=== PATIENT | female | born 1940 | race Caucasian/White ===

== ENCOUNTER → 2016-12-12 | Outpatient (CLI) | payer MEDICARE ==
--- NOTE | 2016-12-13 07:53 | ECHOF ---
Referral Reason:R06.00 Dyspnea MEASUREMENTS -------- HEIGHT: 165.1 cm WEIGHT: 55.3 kg BP: RVIDd: 2.9 cm (< 3.3) IVSd: 0.9 cm (0.6 - 1.1) LVIDd: 3.5 cm (3.9 - 5.3) LVPWd: 0.7 cm (0.6 - 1.1) IVSs: 1.2 cm LVIDs: 2.3 cm LVPWs: 1.3 cm LA Diam: 2.9 cm (2.7 - 3.8) Ao Diam: 2.8 cm (2.0 - 3.7) AV Cusp: 1.6 cm (1.5 - 2.6) LA Diam: 2.7 cm (2.7 - 3.8) MV EXCURSION: 15.271 mm (> 18.000) MV EF SLOPE: 126 mm/s (70 - 150) EPSS: 0.2 cm MV E Waldemar: 0.75 m/s MV DecT: 211 ms MV A Waldemar: 1.20 m/s MV E/A Ratio: 0.63 AR PHT: 218 ms RAP: 5.00 mmHg RVSP: 42.67 mmHg FINDINGS -------- Sinus rhythm. This was a technically adequate study. The left ventricular size is normal. There is mild concentric left ventricular hypertrophy. Overall left ventricular systolic function is normal with, an EF between 55 - 60 %. The right ventricle is normal in size. The left atrial size is normal. The right atrial size is normal. There is mild aortic valve sclerosis. Trace to mild aortic regurgitation. The mitral valve leaflets are mildly thickened. Mild mitral annular calcification present. Mild mitral regurgitation is present. Mild tricuspid regurgitation present. There is moderate pulmonary hypertension. The right ventricular systolic pressure, as measured by Doppler, is 42.67mmHg. There is no pulmonic regurgitation present. The aortic root size is normal. There is no pericardial effusion. CONCLUSIONS -------- 1. This was a technically adequate study. 2. Mild tricuspid regurgitation present. 3. The right ventricular systolic pressure, as measured by Doppler, is 42.67mmHg. 4. There is no pulmonic regurgitation present. 5. There is no pericardial effusion. 6. There is mild concentric left ventricular hypertrophy. 7. Overall left ventricular systolic function is normal with, an EF between 55 - 60 %. 8. The left atrial size is normal. 9. There is mild aortic valve sclerosis. 10. Trace to mild aortic regurgitation. 11. The mitral valve leaflets are mildly thickened. 12. Mild mitral annular calcification present. 13. Mild mitral regurgitation is present. GOAL UMPIRE: Katrin Carlson RDCS
== END | disposition home or self-care (01) ==
LOC: RADECHMAIN 11:06
PROVIDERS: ATTEND Family Medicine
DX: I08.3 Combined rheumatic disorders of mitral, aortic and tricuspid valves (principal)
CPT/HCPCS: 93306

== ENCOUNTER → 2018-04-06 | Outpatient (CLI) | payer MEDICARE ==
[~2018-04-06] MED LIST: DOBUTamine DRIP for NUC MED 500 MG in DEXTROSE/WATER 1 250ML.BAG IV ONE
--- NOTE | 2018-04-06 12:25 | ECHOS ---
STRESS ECHOCARDIOGRAM DOBUTAMINE STRESS ECHOCARDIOGRAM DATE OF SERVICE: 04/06/2018. INDICATIONS: Chest discomfort. MEDICATIONS: BASELINE HEART RATE: 98 BASELINE BLOOD PRESSURE: 128/60 MAXIMUM HEART RATE: 130 MAXIMUM BLOOD PRESSURE: 151/57 85% MPHR: 120 100% MPHR: 141 METS: MAXIMUM STAGE REACHED: TOTAL EXERCISE TIME: CLINICAL INFORMATION: STRESS DATA: Pretesting physical examination showed a heart rate of 98, pressure is 128/60 mmHg. Baseline EKG showed sinus mechanism. Dobutamine infusion at dose of 10 mcg/kg per minute was initiated and increased to 20 mcg/kg per minute. Max heart rate was 130, which is about 92% of maximum predicted heart rate. Maximum blood pressure was 151/57 mmHg. Clinically the patient did not have any symptoms of chest pain or chest discomfort, during the testing or on recovery. The EKG did not show any significant ST or T-wave abnormalities concerning for ischemia. ECHOCARDIOGRAM IMAGES: On echocardiogram images from parasternal long axis view, parasternal short axis view, apical 4 chamber and apical 2 chamber view were obtained as the baseline images, at low dose dobutamine infusion, at peak heart rate, as well as on recovery. The echocardiogram images revealed normal wall motion without any evidence of abnormalities indicating ischemia. CONCLUSION: 1. Normal EKG in response to dobutamine. 2. Normal echocardiogram in response to dobutamine. 3. Essentially normal dobutamine stress test for the patient. MMODL / IJN: [id number] /
== END | disposition home or self-care (01) ==
LOC: RADNMMAIN 08:55
PROVIDERS: ATTEND Family Medicine
DX: R94.31 Abnormal electrocardiogram [ECG] [EKG] (principal)
CPT/HCPCS: 93351; J1250

== ENCOUNTER 2022-07-15 10:27 | Inpatient (IN) | payer MEDICARE ==
--- NOTE | 2022-07-15 10:41 | ED ---
Fall HPI - General Chief Complaint: Fall Stated Complaint: Fall Time Seen by Provider: 07/15/22 10:27 Source: patient, EMS Mode of arrival: EMS - History of Present Illness Initial Comments: 82-year-old female with a prior history of right hip fracture who states he tripped over her cat yesterday fell onto her buttock and now complains of left hip pain she tries ambulate. She normally can walk without assistance and do stairs she was unable to go upstairs last night. At rest she states she has minimal discomfort but she tries to weight-bear or move or press on the left hip she has had pain. No head neck or back pain other complaints or modifying factors. Is brought in by EMS MD Complaint: fall - Related Data Home Medications Medication Instructions Recorded Confirmed Acetaminophen [Tylenol Arthritis] 650 mg PO Q8H PRN 07/15/22 07/15/22 Ascorbic Acid [Vitamin C] 500 mg PO DAILY 07/15/22 07/15/22 Calcium Carbonate [Calcium] 600 mg PO DAILY 07/15/22 07/15/22 Cholecalciferol [Vitamin D3 (25 25 mcg PO DAILY 07/15/22 07/15/22 Mcg = 1000 Iu)] Famotidine 40 mg PO HS PRN 07/15/22 07/15/22 SUMAtriptan succinate [Imitrex] 50 mg PO BID PRN 07/15/22 07/15/22 Vitamin B Complex 1 cap PO DAILY 07/15/22 07/15/22 Allergies Allergy/AdvReac Type Severity Reaction Status Date / Time clarithromycin Allergy Unknown Verified 07/15/22 11:15 ciprofloxacin [From Cipro] AdvReac Unknown Verified 07/15/22 11:15 Review of Systems ROS Statement: Those systems with pertinent positive or pertinent negative responses have been documented in the HPI. ROS Other: All systems not noted in ROS Statement are negative. Past Medical History Past Surgical History: Orthopedic Surgery Additional Past Surgical History / Comment(s): Right hip General Exam - General Exam Comments Initial Comments: This is a well-developed well-nourished awake alert oriented 2 female with a Breonna Coma Scale of 15 Limitations: no limitations General appearance: alert, in no apparent distress Head exam: Present: atraumatic, normocephalic, normal inspection Eye exam: Present: normal appearance, PERRL, EOMI. Absent: scleral icterus, conjunctival injection, periorbital swelling ENT exam: Present: normal exam, mucous membranes moist Neck exam: Present: normal inspection, full ROM, other. Absent: tenderness, meningismus, lymphadenopathy Respiratory exam: Present: normal lung sounds bilaterally. Absent: respiratory distress, wheezes, rales, rhonchi, stridor Cardiovascular Exam: Present: regular rate, normal rhythm, normal heart sounds. Absent: systolic murmur, diastolic murmur, rubs, gallop, clicks GI/Abdominal exam: Present: soft, normal bowel sounds. Absent: distended, tenderness, guarding, rebound, rigid Rectal exam: Present: deferred (No stridor JVD or bruits) Extremities exam: Present: normal inspection, tenderness (Is palpation of the right hip and pelvis no step-off no crepitation no shortening or rotation), normal capillary refill. Absent: full ROM, pedal edema, joint swelling, calf tenderness Back exam: Present: normal inspection Neurological exam: Present: alert, oriented X3, CN II-XII intact Psychiatric exam: Present: normal affect, normal mood Skin exam: Present: warm, dry, intact, normal color. Absent: rash Course Vital Signs 07/15/22 10:30 Temperature 98 F Pulse Rate 107 H Respiratory 18 Rate Blood Pressure 141/60 O2 Sat by Pulse 99 Oximetry Medical Decision Making - Medical Decision Making I did discuss the findings with the patient and family also with Dr. Patrice Torres he been alerted to the patient's presence and did come the emergency department to see the patient. Will be admitted with medical management by Dr. Edward mosqueda with the patient just started seen. - Lab Data Result diagrams: 07/15/22 11:30 07/15/22 11:30 Lab Results 07/15/22 07/15/22 07/15/22 Range/Units 11:30 11:30 11:30 WBC 5.7 (3.8-10.6) k/uL RBC 3.90 (3.80-5.40) m/uL Hgb 11.9 (11.4-16.0) gm/dL Hct 34.9 (34.0-46.0) % MCV 89.4 (80.0-100.0) fL MCH 30.6 (25.0-35.0) pg MCHC 34.2 (31.0-37.0) g/dL RDW 14.4 (11.5-15.5) % Plt Count 207 (150-450) k/uL MPV 7.2 Neutrophils % 78 % Lymphocytes % 13 % Monocytes % 5 % Eosinophils % 1 % Basophils % 0 % Neutrophils # 4.5 (1.3-7.7) k/uL Lymphocytes # 0.8 L (1.0-4.8) k/uL Monocytes # 0.3 (0-1.0) k/uL Eosinophils # 0.1 (0-0.7) k/uL Basophils # 0.0 (0-0.2) k/uL PT 11.1 (9.0-12.0) sec INR 1.0 (<1.2) Sodium 137 (137-145) mmol/L Potassium 3.9 (3.5-5.1) mmol/L Chloride 105 (98-107) mmol/L Carbon Dioxide 20 L (22-30) mmol/L Anion Gap 12 mmol/L BUN 22 H (7-17) mg/dL Creatinine 0.66 (0.52-1.04) mg/dL Est GFR (CKD-EPI)AfAm >90 (>60 ml/min/1.73 sqM) Est GFR (CKD-EPI)NonAf 81 (>60 ml/min/1.73 sqM) Glucose 102 H (74-99) mg/dL Calcium 9.5 (8.4-10.2) mg/dL Total Bilirubin 1.2 (0.2-1.3) mg/dL AST 38 H (14-36) U/L ALT 31 (4-34) U/L Alkaline Phosphatase 69 (38-126) U/L Total Protein 7.1 (6.3-8.2) g/dL Albumin 4.6 (3.5-5.0) g/dL - Radiology Data Radiology results: image reviewed (I did read the x-ray evidence of a pubic ramus fracture and pubic body fracture the hip appears be intact.) Disposition Clinical Impression: Fall, Pelvic fracture, Closed fracture of left inferior pubic ramus Disposition: ADMITTED IP TO THIS [facility] Condition: Fair Referrals: Juan R Crandall MD [Primary Care Provider] - 1-2 days Decision Date: 07/15/22 Decision Time: 12:00
--- NOTE | 2022-07-15 11:02 | XR ---
EXAMINATION TYPE: AP view pelvis and 2 views left hip DATE OF EXAM: 07/15/2022 Comparison: Postoperative right hip radiograph 11/14/2013 Clinical History: 82-year-old female Left hip pain after fall Findings: Degenerative changes lower lumbar spine. Partially visualized right hip arthroplasty. Pubic symphysis appears intact. However, there appears to be irregularity and some deformity to the left pubic body. Some lucency is present along the left inferior pubic ramus. Mild degenerative change left hip. No d isplaced fracture of the proximal left femur. Impression: Comminuted fracture left pubic body. Suspect additional nondisplaced fracture left inferior pubic kalee us. Mild left hip OA.
[2022-07-15 11:37] LABS: Basophils % (A) 0 %; Eosinophils # (A) 0.1 k/uL (0-0.7); Eosinophils % (A) 1 %; HCT 34.9 % (34.0-46.0); HGB 11.9 gm/dL (11.4-16.0); Lymphocytes # (A) 0.8 k/uL (1.0-4.8); Lymphocytes % (A) 13 %; MCH 30.6 pg (25.0-35.0); MCHC 34.2 g/dL (31.0-37.0); MCV 89.4 fL (80.0-100.0); Mean Platelet Volume 7.2; Monocytes # (A) 0.3 k/uL (0-1.0); Monocytes % (A) 5 %; Neutrophils # (A) 4.5 k/uL (1.3-7.7); Neutrophils % (A) 78 %; Platelet Count 207 k/uL (150-450); RDW 14.4 % (11.5-15.5); WBC 5.7 k/uL (3.8-10.6)
[2022-07-15 11:42] LABS: Prothrombin Time 11.1 sec (9.0-12.0)
[2022-07-15 11:50] LABS: ALT 31 U/L (4-34); AST 38 U/L (14-36); African American GFR (CKD) >90 (>60 ml/min/1.73 sqM); Albumin 4.6 g/dL (3.5-5.0); Alkaline Phosphatase 69 U/L (38-126); Anion Gap 12 mmol/L; Blood Urea Nitrogen 22 mg/dL (7-17); Calcium 9.5 mg/dL (8.4-10.2); Carbon Dioxide 20 mmol/L (22-30); Chloride 105 mmol/L (98-107); Glucose 102 mg/dL (74-99); Non-African American GFR(CKD) 81 (>60 ml/min/1.73 sqM); Potassium 3.9 mmol/L (3.5-5.1); Sodium 137 mmol/L (137-145); Total Bilirubin 1.2 mg/dL (0.2-1.3); Total Protein 7.1 g/dL (6.3-8.2)
[2022-07-15] MEDS ORDERED: ACETAMINOPHEN TAB 325 MG TAB PO PRN ×2 (12:13→17:00)
[2022-07-15] MEDS ORDERED: HYDROmorphone 1 MG/ML 1 ML SYRINGE IVP PRN (12:13)
[2022-07-15] MEDS ORDERED: NALOXONE 0.4 MG/ML 1 ML VIAL IV PRN (12:13)
[2022-07-15] MEDS ORDERED: PANTOPRAZOLE 40 MG/10 ML VIAL IVP STA (12:17)
--- NOTE | 2022-07-15 12:20 | P.HPOR ---
History of Present Illness H&P Date: 07/15/22 The patient is a very pleasant previously healthy 82-year-old female who presents to the emergency department with left groin, hip and low back pain. Yesterday she tripped over That she was watching resulting in a ground-level fall. She had progressively worsening pain and an inability to ambulate. She contacted our office this morning scheduled appointment, but we directed her to come to the emergency department due to her inability to ambulate. At the time of my evaluation the emergency department she is having minor discomfort in her left buttock and groin. She denies hitting her head or losing consciousness. She denies any previous left hip pain. She does have a prior right total hip replacement that has been doing relatively well. Past Medical History Past Surgical History: Orthopedic Surgery Additional Past Surgical History / Comment(s): Right hip Medications and Allergies Home Medications Medication Instructions Recorded Confirmed Type Acetaminophen [Tylenol Arthritis] 650 mg PO Q8H PRN 07/15/22 07/15/22 History Ascorbic Acid [Vitamin C] 500 mg PO DAILY 07/15/22 07/15/22 History Calcium Carbonate [Calcium] 600 mg PO DAILY 07/15/22 07/15/22 History Cholecalciferol [Vitamin D3 (25 25 mcg PO DAILY 07/15/22 07/15/22 History Mcg = 1000 Iu)] Famotidine 40 mg PO HS PRN 07/15/22 07/15/22 History SUMAtriptan succinate [Imitrex] 50 mg PO BID PRN 07/15/22 07/15/22 History Vitamin B Complex 1 cap PO DAILY 07/15/22 07/15/22 History Allergies Allergy/AdvReac Type Severity Reaction Status Date / Time clarithromycin Allergy Unknown Verified 07/15/22 11:15 ciprofloxacin [From Cipro] AdvReac Unknown Verified 07/15/22 11:15 Physical Examination The patient is resting comfortably on a hospital gurney in the ER. She is alert and easily able to answer questions. Her head is normocephalic and atraumatic. Her cervical spine is nontender. She demonstrates nonlabored breathing with symmetric chest expansion. She has palpable pulses. Her abdomen is nonobese. She has no tenderness throughout her upper extremities or her right lower extremity. There is a healed incision over the right hip. A focused examination of the left lower extremity was conducted. There is no pain with logroll of the leg. She has minimal pain with passive range of motion of the left hip. There is some point tenderness over the anterior pelvis. Her left knee and ankle are nontender. Her thigh and calf are soft. Motor and sensory function are intact in the left foot. Results X-rays of the pelvis and left hip show displaced parasymphyseal superior and inferior pubic rami fractures on the left. There are no fractures in the left proximal femur. There is a prior right total hip replacement that appears well fixed with no sign of loosening or fracture. There are degenerative changes visualized in the lower lumbar spine. There is mild left hip arthritis. - Labs Labs: Abnormal Lab Results - Last 24 Hours (Table) 07/15/22 07/15/22 Range/Units 11:30 11:30 Lymphocytes # 0.8 L (1.0-4.8) k/uL Carbon Dioxide 20 L (22-30) mmol/L BUN 22 H (7-17) mg/dL Glucose 102 H (74-99) mg/dL AST 38 H (14-36) U/L H & H 07/15/22 Range/Units 11:30 Hgb 11.9 (11.4-16.0) gm/dL Hct 34.9 (34.0-46.0) % Coagulation 07/15/22 Range/Units 11:30 INR 1.0 (<1.2) Result Diagrams: 07/15/22 11:30 07/15/22 11:30 Assessment and Plan Assessment: Left parasymphyseal pubic rami fractures and likely left sacral buckle fracture Prior right total hip replacement Left hip arthritis Osteoporosis Degenerative lumbar spine Plan: The patient has a left parasymphyseal pubic rami fracture and likely sacral buckle fracture. We discussed treatment of fragility pelvic fractures is nonsurgical with protected weightbearing and a walker. The patient is going to be admitted under my care. Internal medicine has been consulted for medical management. Physical therapy for gait training. She can toe touch weight-bear on the left and should mobilize up out of bed with a walker. Care management for discharge planning. I will also check a 25 hydroxy vitamin D level.
[2022-07-15] MEDS: SODIUM CHLORIDE 0.9% 1,000 ML IV SCH (13:11)
[2022-07-15] MEDS ORDERED: FAMOTIDINE 20 MG TAB PO PRN (17:00)
[2022-07-15] MEDS ORDERED: SUMAtriptan succinate 50 MG TAB PO PRN (17:00)
--- NOTE | 2022-07-15 17:31 | P.CONS ---
History of Present Illness - Reason for Consult Consult date: 07/15/22 - History of Present Illness Pamela Yepez, is an 82 year old female who presented to [facility] ER after sustaining a fall and complaining of pain in the left hip area She was evaluated in the emergency room vital examination on presentation revealed a temperature of 98 pulse 107 respiration 18 blood pressure 141/60 pulse ox 99% on room air Laboratory data revealed a white blood count of 5.7 hemoglobin 11.9 platelet count 207 sodium 137 potassium 3.9 chloride 105 CO2 20 BUN 22 creatinine 0.66 Testing in the emergency room revealed pelvic x-ray revealed evidence of comminuted fracture in the left pubic body Patient was admitted to medical floor under orthopedic surgery service for further evaluation and treatment, medical consultation was requested Past medical history is significant for history of osteoarthritis, history of right total hip arthroplasty patient denies any history of coronary artery disease, hypertension, hyperlipidemia, asthma or kidney disease Past Medical History Past Surgical History: Orthopedic Surgery Additional Past Surgical History / Comment(s): Right hip Medications and Allergies Home Medications Medication Instructions Recorded Confirmed Type Acetaminophen [Tylenol Arthritis] 650 mg PO Q8H PRN 07/15/22 07/15/22 History Ascorbic Acid [Vitamin C] 500 mg PO DAILY 07/15/22 07/15/22 History Calcium Carbonate [Calcium] 600 mg PO DAILY 07/15/22 07/15/22 History Cholecalciferol [Vitamin D3 (25 25 mcg PO DAILY 07/15/22 07/15/22 History Mcg = 1000 Iu)] Famotidine 40 mg PO HS PRN 07/15/22 07/15/22 History SUMAtriptan succinate [Imitrex] 50 mg PO BID PRN 07/15/22 07/15/22 History Vitamin B Complex 1 cap PO DAILY 07/15/22 07/15/22 History Allergies Allergy/AdvReac Type Severity Reaction Status Date / Time clarithromycin Allergy Unknown Verified 07/15/22 11:15 ciprofloxacin [From Cipro] AdvReac Unknown Verified 07/15/22 11:15 Physical Exam Vitals: Vital Signs Temp Pulse Resp BP Pulse Ox 07/15/22 12:34 80 18 116/78 98 07/15/22 10:30 98 F 107 H 18 141/60 99 Intake and Output 07/15/22 07/15/22 07/15/22 06:59 14:59 22:59 Other: Weight 46.72 kg In general patient is alert and oriented x 3 in no distress HEENT head normocephalic and atraumatic Neck is supple no JVD no goiter no lymphadenopathy no carotid bruit Chest examination is clear to auscultation no crackles no wheezing Cardiac exam reveals regular heart sounds S1 and S2 no gallops no murmurs Abdomen is soft nontender no organomegaly with normal bowel sounds Extremity exam reveals no edema no cyanosis or clubbing Neurological examination reveals no gross focal deficits Results CBC & Chem 7: 07/15/22 11:30 07/15/22 11:30 Labs: Abnormal Lab Results - Last 24 Hours (Table) 07/15/22 07/15/22 Range/Units 11:30 11:30 Lymphocytes # 0.8 L (1.0-4.8) k/uL Carbon Dioxide 20 L (22-30) mmol/L BUN 22 H (7-17) mg/dL Glucose 102 H (74-99) mg/dL AST 38 H (14-36) U/L Assessment and Plan Plan: Fall with left pubic rami fracture Underlying history was osteoarthritis with history of right total hip arthroplasty Underlying history of degenerative disc disease Underlying history of migraine headache At this time patient was seen and examined Home medications reviewed and reordered For DVT prophylaxis Lovenox For GI prophylaxis continue famotidine Will follow closely during this admission
[2022-07-16] MEDS: SODIUM CHLORIDE 0.9% 1,000 ML IV SCH (02:46)
[2022-07-16] MEDS ORDERED: NON FORMULARY DRUG (Vitamin B Complex [Vitamin B Complex] 1 EACH Capsule) PO SCH (09:00)
[2022-07-16] MEDS: ENOXAPARIN 40 MG/0.4 ML SYRINGE SQ SCH (09:04)
[2022-07-16] MEDS: ASCORBIC ACID 500 MG TAB PO SCH (09:04)
[2022-07-16] MEDS: CHOLECALCIFEROL 25 MCG (1000 IU) TABLET PO SCH (09:04)
[2022-07-16] MEDS: CALCIUM CARBONATE 500 MG CHEWABLE PO SCH (09:05)
[2022-07-16 09:24] LABS: Albumin 3.9 g/dL (3.8-4.9); Albumin/Globulin Ratio 2.17 (1.60-3.17); Anion Gap 9.2 mmol/L (10.00-18.00); BUN/Creat Ratio 19.83 Ratio (12.00-20.00); Blood Urea Nitrogen 11.9 mg/dL (9.0-27.0); Calcium 8.7 mg/dL (8.7-10.3); Carbon Dioxide 21.8 mmol/L (20.0-27.5); Globulin 1.8 g/dL (1.6-3.3); Non-African American GFR(CKD) 83.7 (60.0-200.0); Potassium 3.9 mmol/L (3.5-5.5); Total Bilirubin 0.5 mg/dL (0.30-1.20); Total Protein 5.7 g/dL (6.2-8.2)
[2022-07-16 09:26] LABS: Basophils # (A) 0.02 X 10*3/uL (0.00-0.10); Basophils % (A) 0.4 %; Eosinophils # (A) 0.18 X 10*3/uL (0.04-0.35); Eosinophils % (A) 3.5 %; HCT 31.8 % (37.2-46.3); HGB 10.3 g/dL (12.0-15.0); Immature Grans, Automated 0.4 %; Lymphocytes % (A) 17.6 %; MCH 29.2 pg (27.0-32.0); MCHC 32.4 g/dL (32.0-37.0); MCV 90.1 fL (80.0-97.0); Mean Platelet Volume 9.5 fL (9.5-12.2); Monocytes # (A) 0.56 X 10*3/uL (0.20-1.00); NRBC Per 100 WBC 0 /100 WBCS (0.0-0.0); Neutrophils # (A) 3.42 X 10*3/uL (1.80-7.70); Neutrophils % (A) 67.1 %; Platelet Count 197 X 10*3/uL (140-440); RBC 3.53 X 10*6/uL (4.10-5.20); RDW 14.4 % (11.5-14.5)
[2022-07-16 11:14] VITALS: BMI 17.1
[2022-07-16] MEDS: HYDROcodone/APAP 5-325MG 1 EACH TAB PO PRN ×2 (13:11→18:56)
--- NOTE | 2022-07-16 14:32 | P.PN ---
Subjective Progress Note Date: 07/16/22 Mrs. Yepez is sitting up at bedside this morning. She is doing well at rest, but has some pain when she's up. She also has some discomfort from her IV. Objective - Vital Signs Vital signs: Vital Signs Temp 99.2 F 07/16/22 08:00 Pulse 86 07/16/22 08:00 Resp 18 07/16/22 08:00 BP 104/57 07/16/22 08:00 Pulse Ox 95 07/16/22 08:00 FiO2 Intake & Output 07/15/22 07/16/22 07/16/22 18:59 06:59 18:59 Intake Total 300 Output Total 800 Balance -800 300 Weight 46.72 kg 46.72 kg Intake: Oral 300 Output: Urine 800 Other: Voiding Method Indwelling Catheter Indwelling Catheter Indwelling Catheter # Voids 0 - Exam Sitting comfortably in a chair No apparent distress Alert and able to answer question Left LE: No pain with PROM of the hip. Motor/Sensory function intact distally in the foot - Labs CBC & Chem 7: 07/16/22 05:52 07/16/22 05:52 Labs: Abnormal Lab Results - Last 24 Hours (Table) 07/16/22 07/16/22 Range/Units 05:52 05:52 RBC 3.53 L (4.10-5.20) X 10*6/uL Hgb 10.3 L (12.0-15.0) g/dL Hct 31.8 L (37.2-46.3) % Anion Gap 9.20 L (10.00-18.00) mmol/L Total Protein 5.7 L (6.2-8.2) g/dL Assessment and Plan Assessment: Left parasymphyseal superior and inferior pubic rami fractures and likley left sided sacral insufficiency fracture Osteoporosis Prior right total hip replacement Plan: 1. TTWB Left LE 2. Mobilize out of bed to chair 3. PT for mobilization and gait training 4. DVT prophylaxis with Lovenox 40 mg daily 5. Appreciate IM assistance with perioperative medical management 6. DISPO: Planning in progress, likely [place] following discharge
--- NOTE | 2022-07-16 18:04 | P.PN ---
Subjective Progress Note Date: 07/16/22 Pamela Yepez, is an 82 year old female who presented to [facility] ER after sustaining a fall and complaining of pain in the left hip area She was evaluated in the emergency room vital examination on presentation revealed a temperature of 98 pulse 107 respiration 18 blood pressure 141/60 pulse ox 99% on room air Laboratory data revealed a white blood count of 5.7 hemoglobin 11.9 platelet count 207 sodium 137 potassium 3.9 chloride 105 CO2 20 BUN 22 creatinine 0.66 Testing in the emergency room revealed pelvic x-ray revealed evidence of comminuted fracture in the left pubic body Patient was admitted to medical floor under orthopedic surgery service for further evaluation and treatment, medical consultation was requested Past medical history is significant for history of osteoarthritis, history of right total hip arthroplasty patient denies any history of coronary artery disea se, hypertension, hyperlipidemia, asthma or kidney disease On 07/16/2022 patient was seen and examined on the medical floor she is alert and oriented 3 in no apparent distress she is sitting up in a chair she is still complaining of low back pain and left hip pain otherwise she denies any complaints, there is no fever or chills no headache or dizziness no chest pain no shortness of breath no cough no nausea or vomiting no abdominal pain no diarrhea and no urinary symptoms Objective - Vital Signs Vital signs: Vital Signs Temp 99.2 F 07/16/22 08:00 Pulse 86 07/16/22 08:00 Resp 18 07/16/22 08:00 BP 104/57 07/16/22 08:00 Pulse Ox 95 07/16/22 08:00 FiO2 Intake & Output 07/15/22 07/16/22 07/16/22 18:59 06:59 18:59 Output Total 800 Balance -800 Weight 46.72 kg Output: Urine 800 Other: Voiding Method Indwelling Catheter Indwelling Catheter # Voids 0 - Exam In general patient is alert and oriented x 3 in no distress HEENT head normocephalic and atraumatic Neck is supple no JVD no goiter no lymphadenopathy no carotid bruit Chest examination is clear to auscultation no crackles no wheezing Cardiac exam reveals regular heart sounds S1 and S2 no gallops no murmurs Abdomen is soft nontender no organomegaly with normal bowel sounds Extremity exam reveals no edema no cyanosis or clubbing Neurological examination reveals no gross focal deficits - Labs CBC & Chem 7: 11/23/22 05:52 07/16/22 05:52 Labs: Abnormal Lab Results - Last 24 Hours (Table) 07/15/22 07/15/22 Range/Units 11:30 11:30 Lymphocytes # 0.8 L (1.0-4.8) k/uL Carbon Dioxide 20 L (22-30) mmol/L BUN 22 H (7-17) mg/dL Glucose 102 H (74-99) mg/dL AST 38 H (14-36) U/L Assessment and Plan Plan: Fall with left pubic rami fracture Underlying history was osteoarthritis with history of right total hip arthroplasty Underlying history of degenerative disc disease Underlying history of migraine headache At this time patient was seen and examined Home medications reviewed and reordered For DVT prophylaxis Lovenox For GI prophylaxis continue famotidine Will follow closely during this admission
[2022-07-17] MEDS: HYDROcodone/APAP 5-325MG 1 EACH TAB PO PRN ×3 (06:49→21:00)
--- NOTE | 2022-07-17 07:49 | P.PN ---
Subjective Progress Note Date: 07/17/22 Overall the patient is doing well. She does have some discomfort in her left calf, ankle and heel. She denies chest pain or shortness of breath. Objective - Vital Signs Vital signs: Vital Signs Temp 98.7 F 07/17/22 03:11 Pulse 87 07/17/22 03:11 Resp 17 07/17/22 03:11 BP 109/67 07/17/22 03:11 Pulse Ox 95 07/17/22 03:11 FiO2 Intake & Output 07/16/22 07/17/22 07/17/22 18:59 06:59 18:59 Intake Total 655 200 Output Total 1000 1575 Balance -345 -1375 Weight 46.72 kg Intake: Oral 655 200 Output: Urine 1000 1575 Uretheral ([place]) 1000 Other: Voiding Method Indwelling Catheter - Exam The patient is resting comfortably in bed. She is alert and oriented. She is easily able to answer questions. On examination of the patient's left leg there is mild swelling diffusely throughout the calf and ankle. She has moderate calf tenderness. There are no areas of pressure sore or open wounds over the heel but there is blanching erythema. - Labs CBC & Chem 7: 07/16/22 05:52 07/16/22 05:52 Labs: Abnormal Lab Results - Last 24 Hours (Table) 07/16/22 07/16/22 Range/Units 05:52 05:52 RBC 3.53 L (4.10-5.20) X 10*6/uL Hgb 10.3 L (12.0-15.0) g/dL Hct 31.8 L (37.2-46.3) % Anion Gap 9.20 L (10.00-18.00) mmol/L Total Protein 5.7 L (6.2-8.2) g/dL Assessment and Plan Plan: 1. Continue toe-touch weightbearing on the left lower extremity 2. Mobilize out of bed to chair 3. Offload heels while in bed on a pillow to prevent pressure sore 4. Continue Lovenox 40 mg daily for DVT prophylaxis. Due to her Pelvic fracture and calf tenderness I will obtain bilateral lower extremity duplex ultrasounds to rule out a DVT 5. Appreciate internal medicine assistance with preoperative medical management 6. Discharge planning in process
[2022-07-17] MEDS: CHOLECALCIFEROL 25 MCG (1000 IU) TABLET PO SCH (08:52)
[2022-07-17] MEDS: CALCIUM CARBONATE 500 MG CHEWABLE PO SCH (08:52)
[2022-07-17] MEDS: ENOXAPARIN 40 MG/0.4 ML SYRINGE SQ SCH (08:52)
[2022-07-17] MEDS: ASCORBIC ACID 500 MG TAB PO SCH (08:52)
--- NOTE | 2022-07-17 13:47 | US ---
EXAMINATION TYPE: US venous doppler duplex LE DATE OF EXAM: 07/17/2022 7:50 AM COMPARISON: NONE CLINICAL HISTORY: rule out DVT. Leg swelling per patient. On blood thinners here at hospital. SIDE PERFORMED: Bilateral TECHNIQUE: The lower extremity deep venous system is examined utilizing real time linear array sonog joanie with graded compression, doppler sonography and color-flow sonography. VESSELS IMAGED: Common Femoral Vein Deep Femoral Vein Greater Saphenous Vein * Femoral Vein Popliteal Vein Small Saphenous Vein * Proximal Calf Veins (* superficial vessels) Right Leg: Negative for DVT Left Leg: Negative for DVT : Grayscale, color doppler, spectral doppler imaging performed of the deep veins of the lower extrem ities. There is normal flow, compressibility, vascular waveforms. IMPRESSION: No evidence for deep vein to most of the bilateral lower extremities.
--- NOTE | 2022-07-17 14:15 | P.PN ---
Subjective Progress Note Date: 07/17/22 Pamela Yepez, is an 82 year old female who presented to [facility] ER after sustaining a fall and complaining of pain in the left hip area She was evaluated in the emergency room vital examination on presentation revealed a temperature of 98 pulse 107 respiration 18 blood pressure 141/60 pulse ox 99% on room air Laboratory data revealed a white blood count of 5.7 hemoglobin 11.9 platelet count 207 sodium 137 potassium 3.9 chloride 105 CO2 20 BUN 22 creatinine 0.66 Testing in the emergency room revealed pelvic x-ray revealed evidence of comminuted fracture in the left pubic body Patient was admitted to medical floor under orthopedic surgery service for further evaluation and treatment, medical consultation was requested Past medical history is significant for history of osteoarthritis, history of right total hip arthroplasty patient denies any history of coronary artery disea se, hypertension, hyperlipidemia, asthma or kidney disease On 07/16/2022 patient was seen and examined on the medical floor she is alert and oriented 3 in no apparent distress she is sitting up in a chair she is still complaining of low back pain and left hip pain otherwise she denies any complaints, there is no fever or chills no headache or dizziness no chest pain no shortness of breath no cough no nausea or vomiting no abdominal pain no diarrhea and no urinary symptoms On 07/17/2022 patient was seen and examined she is alert and oriented 3 she is complaining of lower extremity pain, lower extremity venous Doppler was requested to rule out DVT otherwise she denies any complaints there is no fever or chills no headache or dizziness no chest pain no shortness of breath no cough no nausea or vomiting no abdominal pain no diarrhea and no urinary symptoms. At this time will continue with subcu Lovenox 40 mg daily, will continue to follow Objective - Vital Signs Vital signs: Vital Signs Temp 99.2 F 07/17/22 08:00 Pulse 97 07/17/22 08:00 Resp 16 07/17/22 08:00 BP 110/66 07/17/22 08:00 Pulse Ox 96 07/17/22 08:00 FiO2 Intake & Output 07/16/22 07/17/22 07/17/22 18:59 06:59 18:59 Intake Total 655 200 Output Total 1000 1575 Balance -345 -1375 Weight 46.72 kg Intake: Oral 655 200 Output: Urine 1000 1575 Uretheral (Prince) 1000 Other: Voiding Method Indwelling Catheter - Exam In general patient is alert and oriented x 3 in no distress HEENT head normocephalic and atraumatic Neck is supple no JVD no goiter no lymphadenopathy no carotid bruit Chest examination is clear to auscultation no crackles no wheezing Cardiac exam reveals regular heart sounds S1 and S2 no gallops no murmurs Abdomen is soft nontender no organomegaly with normal bowel sounds Extremity exam reveals no edema no cyanosis or clubbing Neurological examination reveals no gross focal deficits - Labs CBC & Chem 7: 07/16/22 05:52 07/16/22 05:52 Labs: Abnormal Lab Results - Last 24 Hours (Table) 07/16/22 07/16/22 Range/Units 05:52 05:52 RBC 3.53 L (4.10-5.20) X 10*6/uL Hgb 10.3 L (12.0-15.0) g/dL Hct 31.8 L (37.2-46.3) % Anion Gap 9.20 L (10.00-18.00) mmol/L Total Protein 5.7 L (6.2-8.2) g/dL Assessment and Plan Plan: Fall with left pubic rami fracture Underlying history was osteoarthritis with history of right total hip arthroplasty Underlying history of degenerative disc disease Underlying history of migraine headache At this time patient was seen and examined Home medications reviewed and reordered For DVT prophylaxis Lovenox For GI prophylaxis continue famotidine Will follow closely during this admission
[2022-07-18] MEDS: HYDROcodone/APAP 5-325MG 1 EACH TAB PO PRN ×3 (06:21→21:11)
[2022-07-18 08:43] LABS: Basophils # (A) 0.05 X 10*3/uL (0.00-0.10); Basophils % (A) 0.8 %; Eosinophils % (A) 4.9 %; HCT 31.1 % (37.2-46.3); HGB 10.1 g/dL (12.0-15.0); Immature Grans, Automated 0.3 %; Lymphocytes # (A) 1.12 X 10*3/uL (0.90-5.00); Lymphocytes % (A) 18.2 %; MCH 29.7 pg (27.0-32.0); MCHC 32.5 g/dL (32.0-37.0); MCV 91.5 fL (80.0-97.0); Mean Platelet Volume 9.2 fL (9.5-12.2); NRBC Per 100 WBC 0 /100 WBCS (0.0-0.0); Neutrophils # (A) 3.86 X 10*3/uL (1.80-7.70); Neutrophils % (A) 62.8 %; Platelet Count 211 X 10*3/uL (140-440); RDW 14.2 % (11.5-14.5); WBC 6.15 X 10*3/uL (4.50-10.00)
[2022-07-18 08:56] LABS: African American GFR (CKD) 92.2 (60.0-200.0); Albumin 3.6 g/dL (3.8-4.9); Albumin/Globulin Ratio 1.71 (1.60-3.17); Anion Gap 9.7 mmol/L (10.00-18.00); BUN/Creat Ratio 15.86 Ratio (12.00-20.00); Blood Urea Nitrogen 11.1 mg/dL (9.0-27.0); Calcium 8.9 mg/dL (8.7-10.3); Carbon Dioxide 26.3 mmol/L (20.0-27.5); Globulin 2.1 g/dL (1.6-3.3); Non-African American GFR(CKD) 79.6 (60.0-200.0); Potassium 4.5 mmol/L (3.5-5.5); Total Bilirubin 0.4 mg/dL (0.30-1.20); Total Protein 5.7 g/dL (6.2-8.2)
[2022-07-18] MEDS: CHOLECALCIFEROL 25 MCG (1000 IU) TABLET PO SCH (09:37)
[2022-07-18] MEDS: ASCORBIC ACID 500 MG TAB PO SCH (09:37)
[2022-07-18] MEDS: CALCIUM CARBONATE 500 MG CHEWABLE PO SCH (09:37)
[2022-07-18] MEDS: ENOXAPARIN 40 MG/0.4 ML SYRINGE SQ SCH (09:38)
--- NOTE | 2022-07-18 10:10 | P.PN ---
Subjective Progress Note Date: 07/18/22 Patient is doing well other than some minor discomfort in her pelvis. She is presently up in a chair. Objective - Vital Signs Vital signs: Vital Signs Temp 97.9 F 07/18/22 08:00 Pulse 93 07/18/22 08:00 Resp 14 07/18/22 08:00 BP 110/58 07/18/22 08:00 Pulse Ox 93 L 07/18/22 08:00 FiO2 Intake & Output 07/17/22 07/18/22 07/18/22 18:59 06:59 18:59 Intake Total 240 Output Total 500 1350 375 Balance -500 -1350 -135 Intake: Oral 240 Output: Urine 500 1350 375 Other: Voiding Method Indwelling Catheter Indwelling Catheter - Exam At time of evaluation the patient is sitting up comfortably in a chair. She is alert and able to answer questions. She demonstrates nonlabored breathing. There is no pain with passive range of motion of the left hip. There is no pain with heel strike. Her calves are both soft and nontender. There is diffuse ecchymosis throughout both of her legs but no signs of pressure sore. - Labs CBC & Chem 7: 07/18/22 05:44 07/18/22 05:44 Labs: Abnormal Lab Results - Last 24 Hours (Table) 07/18/22 07/18/22 Range/Units 05:44 05:44 RBC 3.40 L (4.10-5.20) X 10*6/uL Hgb 10.1 L (12.0-15.0) g/dL Hct 31.1 L (37.2-46.3) % MPV 9.2 L (9.5-12.2) fL Anion Gap 9.70 L (10.00-18.00) mmol/L Total Protein 5.7 L (6.2-8.2) g/dL Albumin 3.6 L (3.8-4.9) g/dL Assessment and Plan Plan: Continue treatment as previously outlined. Her ultrasounds of the legs yesterday were negative for DVT. Discharge planning is in progress.
--- NOTE | 2022-07-18 13:21 | P.PN ---
Subjective Progress Note Date: 07/18/22 Pamela Yepez, is an 82 year old female who presented to [facility] ER after sustaining a fall and complaining of pain in the left hip area She was evaluated in the emergency room vital examination on presentation revealed a temperature of 98 pulse 107 respiration 18 blood pressure 141/60 pulse ox 99% on room air Laboratory data revealed a white blood count of 5.7 hemoglobin 11.9 platelet count 207 sodium 137 potassium 3.9 chloride 105 CO2 20 BUN 22 creatinine 0.66 Testing in the emergency room revealed pelvic x-ray revealed evidence of comminuted fracture in the left pubic body Patient was admitted to medical floor under orthopedic surgery service for further evaluation and treatment, medical consultation was requested Past medical history is significant for history of osteoarthritis, history of right total hip arthroplasty patient denies any history of coronary artery disea se, hypertension, hyperlipidemia, asthma or kidney disease On 07/16/2022 patient was seen and examined on the medical floor she is alert and oriented 3 in no apparent distress she is sitting up in a chair she is still complaining of low back pain and left hip pain otherwise she denies any complaints, there is no fever or chills no headache or dizziness no chest pain no shortness of breath no cough no nausea or vomiting no abdominal pain no diarrhea and no urinary symptoms On 07/17/2022 patient was seen and examined she is alert and oriented 3 she is complaining of lower extremity pain, lower extremity venous Doppler was requested to rule out DVT otherwise she denies any complaints there is no fever or chills no headache or dizziness no chest pain no shortness of breath no cough no nausea or vomiting no abdominal pain no diarrhea and no urinary symptoms. At this time will continue with subcu Lovenox 40 mg daily, will continue to follow On 07/18/2022 patient is alert and oriented 3. Patient reports some pain and discomfort with movement and ambulation. Discharge planning in place [facility] facility [facility]. Patient denies chest pain or shortness of breath. Patient denies nausea vomiting or diarrhea. Patient denies any urinary burning or frequency Objective - Vital Signs Vital signs: Vital Signs Temp 97.9 F 07/18/22 08:00 Pulse 93 07/18/22 08:00 Resp 14 07/18/22 08:00 BP 110/58 07/18/22 08:00 Pulse Ox 93 L 07/18/22 08:00 FiO2 Intake & Output 07/17/22 07/18/22 07/18/22 18:59 06:59 18:59 Intake Total 240 Output Total 500 1350 375 Balance -500 -1350 -135 Intake: Oral 240 Output: Urine 500 1350 375 Other: Voiding Method Indwelling Catheter Indwelling Catheter - Exam In general patient is alert and oriented x 3 in no distress HEENT head normocephalic and atraumatic Neck is supple no JVD no goiter no lymphadenopathy no carotid bruit Chest examination is clear to auscultation no crackles no wheezing Cardiac exam reveals regular heart sounds S1 and S2 no gallops no murmurs Abdomen is soft nontender no organomegaly with normal bowel sounds Extremity exam reveals no edema no cyanosis or clubbing Neurological examination reveals no gross focal deficits - Labs CBC & Chem 7: 07/18/22 05:44 07/18/22 05:44 Labs: Abnormal Lab Results - Last 24 Hours (Table) 07/18/22 07/18/22 Range/Units 05:44 05:44 RBC 3.40 L (4.10-5.20) X 10*6/uL Hgb 10.1 L (12.0-15.0) g/dL Hct 31.1 L (37.2-46.3) % MPV 9.2 L (9.5-12.2) fL Anion Gap 9.70 L (10.00-18.00) mmol/L Total Protein 5.7 L (6.2-8.2) g/dL Albumin 3.6 L (3.8-4.9) g/dL Assessment and Plan Plan: Fall with left pubic rami fracture Underlying history was osteoarthritis with history of right total hip arthroplasty Underlying history of degenerative disc disease Underlying history of migraine headache At this time patient was seen and examined Home medications reviewed and reordered For DVT prophylaxis Lovenox For GI prophylaxis continue famotidine DC planning placed to rehab Caroline Will follow closely during this admission
--- NOTE | 2022-07-18 14:14 | CDI ---
Documentation Clarification Form Date: 07/18/2022 02:03:27 PM From: Yoly Peace CCS, CCDS Admit Date: 07/15/2022 12:13:00 PM Patient Name: Pamela Yepez Visit Number: [id number] Discharge Date: ATTENTION: The Clinical Documentation Specialists (CDI) and [facility] Coding Staff appreciate your assistance in clarifying documentation. Please respond to the clarification below the line at the bottom and electronically sign. The CDI & [facility] [employer] Coding staff will review the response and follow-up if needed. Please note: Queries are made part of the Legal Health Record. If you have any questions, please contact the author of this message via ITS. Dr. David Ibrahim: Left parasymphyseal pubic fractures ad likely left sacral buckle fracture, Prior right total hip replacement, Left Hip Arthritis and Osteoporosis is documented in the 07/15 Orthopedic History & Physical. Additional clarification regarding the etiology of the fractures is requested. Patient history/risk factors per the 07/15 History & Physical: Prior right total hip replacement, Osteoarthritis, Osteoporosis and Degenerative Lumbar Spine. Clinical Indicators: Presented to the ED 07/15 via EMS after a fall in her home, tripped over her cat, fell onto her buttock, complaining of left hip pain. Admit with Fall, Pelvic fracture, Closed fracture of left inferior pubic ramus. 07/15 VS: T 98, P 107, R 18, BP 141/60, PO 99 RA, BMI 17.1 07/15 LAB: Lymphocytes 0.8; CO2 20, BUN 22, Glucose 102, AST 38 07/15 RAD: Left Hip: Comminuted fracture left pubic body. Suspect additional nondisplaced facture left inferior pubic ramus. Mild left hip OA. Treatment 07/15: Fall precautions, PT, IV Dilaudid 1 mg q3H/prn, IV Protonix 40 mg x1, po [place] 5-325 q6H/prn, po Tylenol 650 mg q8H/prn. Please clarify the etiology of the fracture, if known: [ ] Pathological due to Osteoporosis [ ] Traumatic [ ] Other (please specify): [ ] Unable to determine (Template Last Revised: October 2020) MTDD
[2022-07-18 14:24] LABS: % Iron Saturation 9.43 (12.00-45.00)
[2022-07-19 07:51] VITALS: BP 104/68; PULSE 87; RESP 15; TEMP 98.2
[2022-07-19 08:55] LABS: Basophils # (A) 0.04 X 10*3/uL (0.00-0.10); Basophils % (A) 0.7 %; Eosinophils # (A) 0.28 X 10*3/uL (0.04-0.35); Eosinophils % (A) 4.6 %; HCT 33.1 % (37.2-46.3); HGB 10.6 g/dL (12.0-15.0); Immature Grans, Automated 0.5 %; Lymphocytes # (A) 1.15 X 10*3/uL (0.90-5.00); Lymphocytes % (A) 18.7 %; MCH 29.8 pg (27.0-32.0); Mean Platelet Volume 9.3 fL (9.5-12.2); Monocytes # (A) 0.63 X 10*3/uL (0.20-1.00); Monocytes % (A) 10.3 %; NRBC Per 100 WBC 0 /100 WBCS (0.0-0.0); Neutrophils # (A) 4.01 X 10*3/uL (1.80-7.70); Neutrophils % (A) 65.2 %; Platelet Count 270 X 10*3/uL (140-440); RBC 3.56 X 10*6/uL (4.10-5.20); WBC 6.14 X 10*3/uL (4.50-10.00)
--- NOTE | 2022-07-19 09:25 | P.PN ---
Subjective Progress Note Date: 07/18/22 Late entry progress note- 07/18/22 Patient examined bedside this morning with Dr. Ibrahim. She is up to bedside chair. She continues to experience mild discomfort in her pelvis. No new complaints. Plan is to discharge to [facility]. Objective - Vital Signs Vital signs: Vital Signs Temp 98.2 F 07/19/22 07:51 Pulse 87 07/19/22 07:51 Resp 15 07/19/22 07:51 BP 104/68 07/19/22 07:51 Pulse Ox 95 07/19/22 07:51 FiO2 Intake & Output 07/18/22 07/19/22 07/19/22 18:59 06:59 18:59 Intake Total 480 237 Output Total 1500 2200 Balance -1020 -2200 237 Intake: Oral 480 237 Output: Urine 1500 2200 Other: Voiding Method Indwelling Catheter Indwelling Catheter # Bowel Movements 1 - Exam On examination, patient is sitting up in bedside chair. She is alert and answers questions appropriately. No pain with passive [id number] of the left hip. Calves are soft and non-tender to palpation. - Labs CBC & Chem 7: 07/19/22 05:00 07/18/22 05:44 Labs: Abnormal Lab Results - Last 24 Hours (Table) 07/18/22 07/19/22 Range/Units 05:45 05:00 RBC 3.56 L (4.10-5.20) X 10*6/uL Hgb 10.6 L (12.0-15.0) g/dL Hct 33.1 L (37.2-46.3) % MPV 9.3 L (9.5-12.2) fL Iron 26 L (50-170) ug/dL % Saturation 9.43 L (12.00-45.00) Transferrin 194.0 L (204.0-354.0) mg/dL Assessment and Plan Plan: - Continue current treatment. Toe touch weight bearing left lower extremity with a walker. - Physical therapy for gait and balance training. - Lovenox for DVT prophylaxis. - Anticipate discharge to [facility] when auth is obtained.
[2022-07-19] MEDS: CHOLECALCIFEROL 25 MCG (1000 IU) TABLET PO SCH (09:30)
[2022-07-19] MEDS: CALCIUM CARBONATE 500 MG CHEWABLE PO SCH (09:30)
[2022-07-19] MEDS: ASCORBIC ACID 500 MG TAB PO SCH (09:30)
[2022-07-19] MEDS: ENOXAPARIN 40 MG/0.4 ML SYRINGE SQ SCH (09:30)
[2022-07-19] MEDS: HYDROcodone/APAP 5-325MG 1 EACH TAB PO PRN (09:37)
[2022-07-19 09:41] LABS: African American GFR (CKD) 91.1 (60.0-200.0); Albumin 3.9 g/dL (3.8-4.9); Albumin/Globulin Ratio 1.75 (1.60-3.17); Anion Gap 10.2 mmol/L (10.00-18.00); BUN/Creat Ratio 24.75 Ratio (12.00-20.00); Blood Urea Nitrogen 17.5 mg/dL (9.0-27.0); Calcium 9.6 mg/dL (8.7-10.3); Carbon Dioxide 28.8 mmol/L (20.0-27.5); Globulin 2.2 g/dL (1.6-3.3); Non-African American GFR(CKD) 78.6 (60.0-200.0); Potassium 5.1 mmol/L (3.5-5.5); Total Bilirubin 0.5 mg/dL (0.30-1.20); Total Protein 6.1 g/dL (6.2-8.2)
--- NOTE | 2022-07-19 12:13 | P.DS ---
Providers Date of admission: 07/15/22 12:13 Expected date of discharge: 07/19/22 Attending physician: David Ibrahim Consults: 07/15/22 12:13 Consult Physician Routine Consulting Provider: Juan R Crandall Consult Reason/Comments: Medical management Do you want consulting provider notified?: Yes Primary care physician: Juan R Crandall - Discharge Diagnosis(es) (1) Pelvic fracture Patient was admitted through the ED on 07/14/22 after suffering a fall at home resulting in pubic rami fracture. Surgical intervention was not warranted and conservative care has been recommended including pain management, PT and protected weight bearing. Her hospital course has remained without complication. On day of discharge she is afebrile, vital signs stable, labs within acceptable ranges, tolerating by mouth meds and diet, voiding without difficulty, positive flatus, denies abdominal pain or calf pain, pain is controlled on oral pain medication and has no new complaints. Neurovascular status is intact, calves are soft and nontender, abdomen soft and nontender. Review of systems is negative for numbness, tingling, fever, chills, chest pain, shortness of breath, nausea, vomiting, dizziness, headaches, slurred speech or other. Current Visit: Yes Status: Acute Priority: Medium Patient Condition at Discharge: Fair Plan - Discharge Summary New Discharge Prescriptions: New HYDROcodone/APAP 5-325MG [Speculator 5-325] 1 tab PO Q4HR PRN #42 tab PRN Reason: Pain Enoxaparin [Lovenox] 40 mg SQ DAILY 14 Days each No Action Vitamin B Complex 1 cap PO DAILY Ascorbic Acid [Vitamin C] 500 mg PO DAILY Acetaminophen [Tylenol Arthritis] 650 mg PO Q8H PRN PRN Reason: Pain Or Fever > 100.5 SUMAtriptan succinate [Imitrex] 50 mg PO BID PRN PRN Reason: Migraine Headache Famotidine 40 mg PO HS PRN PRN Reason: ACID REFLUX Cholecalciferol [Vitamin D3 (25 Mcg = 1000 Iu)] 25 mcg PO DAILY Calcium Carbonate [Calcium] 600 mg PO DAILY Discharge Medication List Acetaminophen [Tylenol Arthritis] 650 mg PO Q8H PRN 07/15/22 [History] Ascorbic Acid [Vitamin C] 500 mg PO DAILY 07/15/22 [History] Calcium Carbonate [Calcium] 600 mg PO DAILY 07/15/22 [History] Cholecalciferol [Vitamin D3 (25 Mcg = 1000 Iu)] 25 mcg PO DAILY 07/15/22 [History] Famotidine 40 mg PO HS PRN 07/15/22 [History] SUMAtriptan succinate [Imitrex] 50 mg PO BID PRN 07/15/22 [History] Vitamin B Complex 1 cap PO DAILY 07/15/22 [History] Enoxaparin [Lovenox] 40 mg SQ DAILY 14 Days each 07/19/22 [Rx] HYDROcodone/APAP 5-325MG [Speculator 5-325] 1 tab PO Q4HR PRN #42 tab 07/19/22 [Rx] Follow up Appointment(s)/Referral(s): Juan R Crandall MD [Primary Care Provider] - 1-2 days David Ibrahim MD [Medical Doctor] - 2 Weeks Activity/Diet/Wound Care/Special Instructions: Toe touch weight bearing left lower extremity with a walker. Up with assistance. Fall precautions. Take pain medications as prescribed as needed. Lovenox as prescribed for 2 weeks. After two weeks, stop Lovenox and begin aspirin 81mg BID x 4 weeks for blood clot prevention. Follow-up in the office in two weeks at [facility]. Call the office with any questions or concerns, Discharge Disposition: TRANSFER TO SNF/ECF
--- NOTE | 2022-07-19 15:25 | P.PN ---
Subjective Progress Note Date: 07/19/22 Pamela Yepez, is an 82 year old female who presented to [facility] ER after sustaining a fall and complaining of pain in the left hip area She was evaluated in the emergency room vital examination on presentation revealed a temperature of 98 pulse 107 respiration 18 blood pressure 141/60 pulse ox 99% on room air Laboratory data revealed a white blood count of 5.7 hemoglobin 11.9 platelet count 207 sodium 137 potassium 3.9 chloride 105 CO2 20 BUN 22 creatinine 0.66 Testing in the emergency room revealed pelvic x-ray revealed evidence of comminuted fracture in the left pubic body Patient was admitted to medical floor under orthopedic surgery service for further evaluation and treatment, medical consultation was requested Past medical history is significant for history of osteoarthritis, history of right total hip arthroplasty patient denies any history of coronary artery disea se, hypertension, hyperlipidemia, asthma or kidney disease On 07/16/2022 patient was seen and examined on the medical floor she is alert and oriented 3 in no apparent distress she is sitting up in a chair she is still complaining of low back pain and left hip pain otherwise she denies any complaints, there is no fever or chills no headache or dizziness no chest pain no shortness of breath no cough no nausea or vomiting no abdominal pain no diarrhea and no urinary symptoms On 07/17/2022 patient was seen and examined she is alert and oriented 3 she is complaining of lower extremity pain, lower extremity venous Doppler was requested to rule out DVT otherwise she denies any complaints there is no fever or chills no headache or dizziness no chest pain no shortness of breath no cough no nausea or vomiting no abdominal pain no diarrhea and no urinary symptoms. At this time will continue with subcu Lovenox 40 mg daily, will continue to follow On 07/18/2022 patient is alert and oriented 3. Patient reports some pain and discomfort with movement and ambulation. Discharge planning in place ECF facility [facility]. Patient denies chest pain or shortness of breath. Patient denies nausea vomiting or diarrhea. Patient denies any urinary burning or frequency. On 07/19/2022 patient was seen and examined on the medical floor she is alert and oriented 3 in no apparent distress patient will be discharged today by orthopedic surgery to [facility] for rehab. A prolonged discussion was patient in regard to her Prince catheter, decision was made to continue was Prince catheter at this time for a few days until patient is able to pivot safely from her bed to bedside commode. Medications reviewed patient is medically clear for discharge to [facility] today. Objective - Vital Signs Vital signs: Vital Signs Temp 98.2 F 07/19/22 07:51 Pulse 87 07/19/22 07:51 Resp 15 07/19/22 08:00 BP 104/68 07/19/22 07:51 Pulse Ox 95 07/19/22 07:51 FiO2 Intake & Output 07/18/22 07/19/22 07/19/22 18:59 06:59 18:59 Intake Total 480 237 Output Total 1500 2200 Balance -1020 -2200 237 Intake: Oral 480 237 Output: Urine 1500 2200 Other: Voiding Method Indwelling Catheter Indwelling Catheter Indwelling Catheter # Bowel Movements 1 - Exam In general patient is alert and oriented x 3 in no distress HEENT head normocephalic and atraumatic Neck is supple no JVD no goiter no lymphadenopathy no carotid bruit Chest examination is clear to auscultation no crackles no wheezing Cardiac exam reveals regular heart sounds S1 and S2 no gallops no murmurs Abdomen is soft nontender no organomegaly with normal bowel sounds Extremity exam reveals no edema no cyanosis or clubbing Neurological examination reveals no gross focal deficits - Labs CBC & Chem 7: 07/19/22 05:00 07/19/22 05:00 Labs: Abnormal Lab Results - Last 24 Hours (Table) 07/18/22 07/19/22 07/19/22 Range/Units 05:45 05:00 05:00 RBC 3.56 L (4.10-5.20) X 10*6/uL Hgb 10.6 L (12.0-15.0) g/dL Hct 33.1 L (37.2-46.3) % MPV 9.3 L (9.5-12.2) fL Carbon Dioxide 28.8 H (20.0-27.5) mmol/L BUN/Creatinine Ratio 24.75 H (12.00-20.00) Ratio Iron 26 L (50-170) ug/dL % Saturation 9.43 L (12.00-45.00) Transferrin 194.0 L (204.0-354.0) mg/dL Total Protein 6.1 L (6.2-8.2) g/dL Assessment and Plan Plan: Fall with left pubic rami fracture Underlying history was osteoarthritis with history of right total hip arthroplasty Underlying history of degenerative disc disease Underlying history of migraine headache At this time patient was seen and examined Home medications reviewed and reordered For DVT prophylaxis Lovenox For GI prophylaxis continue famotidine DC planning placed to rehab [facility] Will follow closely during this admission
--- NOTE | 2022-07-22 08:12 | CDI ---
Documentation Clarification Form Date: 07/18/2022 02:03:00 PM From: Yoly Peace Phone: Admit Date: 07/15/2022 12:13:00 PM Patient Name: Pamela Yepez Visit Number: [id number] Discharge Date: 07/19/2022 02:10:00 PM ATTENTION: The Clinical Documentation Specialists (CDI) and [facility] Coding Staff appreciate your assistance in clarifying documentation. Please respond to the clarification below the line at the bottom and electronically sign. The CDI & [facility] Coding staff will review the response and follow-up if needed. Please note: Queries are made part of the Legal Health Record. If you have any questions, please contact the author of this message via ITS. Dr. David Ibrahim Left parasymphyseal pubic fractures ad likely left sacral buckle fracture, Prior right total hip replacement, Left Hip Arthritis and Osteoporosis is documented in the 07/15 Orthopedic History & Physical. Additional clarification regarding the etiology of the fractures is requested. Patient history/risk factors per the 07/15 History & Physical: Prior right total hip replacement, Osteoarthritis, Osteoporosis and Degenerative Lumbar Spine. Clinical Indicators: Presented to the ED 07/15 via EMS after a fall in her home, tripped over her cat, fell onto her buttock, complaining of left hip pain. Admit with Fall, Pelvic fracture, Closed fracture of left inferior pubic ramus. 07/15 VS: T 98, P 107, R 18, BP 141/60, PO 99 RA, BMI 17.1 07/15 LAB: Lymphocytes 0.8; CO2 20, BUN 22, Glucose 102, AST 38 07/15 RAD: Left Hip: Comminuted fracture left pubic body. Suspect additional nondisplaced facture left inferior pubic ramus. Mild left hip OA. Treatment 07/15: Fall precautions, PT, IV Dilaudid 1 mg q3H/prn, IV Protonix 40 mg x1, po [place] 5-325 q6H/prn, po Tylenol 650 mg q8H/prn. Please clarify the etiology of the fracture, if known: [ ] Pathological due to Osteoporosis [ ] Traumatic [ ] Other (please specify): [ ] Unable to determine (Template Last Revised: October 2020) MTDD
== END 2022-07-19 14:10 | DRG 544 ==
LOC: EC 10:27 → 5NMEDONC 12:13 → 4SSUR 15:45 → 6NMEDSUR 16:45
PROVIDERS: ADMIT Orthopaedic Surgery; ATTEND Orthopaedic Surgery
DX: M80.052A Age-related osteoporosis with current pathological fracture, left femur, initial encounter for fracture (principal); M80.08XA Age-related osteoporosis with current pathological fracture, vertebra(e), initial encounter for fracture; G43.909 Migraine, unspecified, not intractable, without status migrainosus; Z20.822 Contact with and (suspected) exposure to COVID-19; M16.12 Unilateral primary osteoarthritis, left hip; M54.50 Low back pain, unspecified; Z79.899 Other long term (current) drug therapy; Z96.641 Presence of right artificial hip joint; Z71.3 Dietary counseling and surveillance; W01.0XXA Fall on same level from slipping, tripping and stumbling without subsequent striking against object, initial encounter; Y92.019 Unspecified place in single-family (private) house as the place of occurrence of the external cause; Z88.1 Allergy status to other antibiotic agents
CPT/HCPCS: 36415; 51702; 73502; 80053; 82306; 82607; 82746; 83540; 83550; 85025; 85610; 87635; 93970; 96361; 96374; 99285

== ENCOUNTER 2023-06-26 09:54 | Observation (INO) | payer MEDICARE ==
[2023-06-26] MEDS ORDERED: ONDANSETRON 4 MG/2 ML VIAL IVP STA (10:09)
[2023-06-26] MEDS ORDERED: SODIUM CHLORIDE 0.9% 1,000 ML IV STA (10:09)
--- NOTE | 2023-06-26 10:15 | ED ---
Dizziness HPI - General Chief Complaint: Dizziness Stated Complaint: NAUSEA Time Seen by Provider: 06/26/23 10:00 Source: patient, EMS, RN notes reviewed Mode of arrival: EMS Limitations: no limitations - History of Present Illness Initial Comments: Patient is an 82-year-old female presented ER via EMS with a chief complaint of dizziness. Patient has a past medical history significant for migraines for which she is on Imitrex. Patient states for the past couple of days she has been having extreme dizziness (like the room is spinning) and nausea with position changes. She states this morning she needed to hold onto acuna to get to the bathroom. Patient also reports that her migraines have been becoming more frequent recently. She denies any episodes of vomiting. Patient denies any cough, congestion, shortness of breath, chest pain/palpitations, abdominal pain, urinary symptoms. Patient received 500 mL of fluid from EMS. - Related Data Home Medications Medication Instructions Recorded Confirmed Ascorbic Acid [Vitamin C] 500 mg PO W/SUPPER 07/15/22 06/26/23 Cholecalciferol [Vitamin D3 (25 25 mcg PO W/SUPPER 07/15/22 06/26/23 Mcg = 1000 Iu)] SUMAtriptan succinate [Imitrex] 50 mg PO BID PRN 07/15/22 06/26/23 Vitamin B Complex 1 cap PO W/SUPPER 07/15/22 06/26/23 Levothyroxine Sodium [Synthroid] 25 mcg PO DAILY 06/26/23 06/26/23 Rosuvastatin Calcium 5 mg PO W/SUPPER 06/26/23 06/26/23 Allergies Allergy/AdvReac Type Severity Reaction Status Date / Time ciprofloxacin [From Cipro] Allergy Unknown Verified 06/26/23 14:16 clarithromycin Allergy Unknown Verified 06/26/23 14:16 Review of Systems ROS Statement: Those systems with pertinent positive or pertinent negative responses have been documented in the HPI. ROS Other: All systems not noted in ROS Statement are negative. Past Medical History Past Medical History: Eye Disorder Additional Past Medical History / Comment(s): Ear issues, migraines, History of Any Multi-Drug Resistant Organisms: None Reported Past Surgical History: Orthopedic Surgery Additional Past Surgical History / Comment(s): Right hip Past Anesthesia/Blood Transfusion Reactions: No Reported Reaction Past Psychological History: No Psychological Hx Reported Smoking Status: Never smoker General Exam Limitations: no limitations General appearance: alert, in no apparent distress Respiratory exam: Present: normal lung sounds bilaterally. Absent: respiratory distress, wheezes, rales, rhonchi, stridor Cardiovascular Exam: Present: regular rate, normal rhythm, normal heart sounds. Absent: systolic murmur, diastolic murmur, rubs, gallop, clicks GI/Abdominal exam: Present: soft, normal bowel sounds. Absent: distended, tenderness, guarding, rebound, rigid Extremities exam: Present: normal inspection, full ROM, normal capillary refill. Absent: tenderness, pedal edema, joint swelling, calf tenderness Neurological exam: Present: alert, oriented X3, CN II-XII intact, other (no deficits noted on finger to nose, leg raise, shoulder shrug, or quick alternating movements) Psychiatric exam: Present: normal affect, normal mood Skin exam: Present: warm, dry, intact, normal color. Absent: rash Course Vital Signs 06/26/23 06/26/23 06/26/23 10:00 10:13 10:30 Temperature 97.7 F Pulse Rate 89 Respiratory 18 Rate Blood Pressure 126/68 126/68 O2 Sat by Pulse 96 97 98 Oximetry 06/26/23 06/26/23 06/26/23 11:00 11:30 12:00 Temperature Pulse Rate 89 89 98 Respiratory 16 16 16 Rate Blood Pressure 125/58 125/66 111/60 O2 Sat by Pulse 95 94 L 97 Oximetry 06/26/23 06/26/23 06/26/23 13:00 14:00 15:00 Temperature Pulse Rate 80 78 91 Respiratory 15 17 16 Rate Blood Pressure 112/54 O2 Sat by Pulse 96 96 95 Oximetry Medical Decision Making - Medical Decision Making Was pt. sent in by a medical professional or institution (, PA, MATRIX REPAIRER, urgent care, hospital, or [facility]...) When possible be specific @ -No Did you speak to anyone other than the patient for history (EMS, parent, family, police, friend...)? What history was obtained from this source @ -EMS and family Did you review nursing and triage notes (agree or disagree)? Why? @ -I reviewed and agree with nursing and triage notes Were old charts reviewed (outside hosp., previous admission, EMS record, old EKG, old radiological studies, urgent care reports/EKG's, [facility] records)? Report findings @ -No old charts were reviewed Differential Diagnosis (chest pain, altered mental status, abdominal pain women, abdominal pain men, vaginal bleeding, weakness, fever, dyspnea, syncope, headache, dizziness, GI bleed, back pain, seizure, CVA, palpatations, mental health, musculoskeletal)? @ -Differential Dizziness: Benign paroxysmal positional Vertigo, Menieres disease, otitis media, acoustic neuroma, vertebrobasilar insufficiency, cerebellar stroke, encephalitis, hypovolemic, arrhythmia, coronary artery syndrome, anemia, this is not meant to be an all-inclusive list EKG interpreted by me (3pts min.). @ -As above X-rays interpreted by me (1pt min.). @ -None done CT interpreted by me (1pt min.). @ -CT brain without contrast shows no acute intracranial process. There is mild chronic small vessel ischemic disease and generalized cerebral atrophy. Ct angio head and neck showed no flow limiting stenosis in bilateral carotids. Normal [place] of [place]. U/S interpreted by me (1pt. min.). @ -None done What testing was considered but not performed or refused? (CT, X-rays, U/S, lab s)? Why? @ -None What meds were considered but not given or refused? Why? @ -None Did you discuss the management of the patient with other professionals (professionals i.e. , PA, MATRIX REPAIRER, lab, RT, psych nurse, protective services social worker, instructional specialist, teacher, geological technical officer, correctional case records supervisor)? Give summary @ -Yes, I spoke with Dr. Callahan for admission. Was smoking cessation discussed for >3mins.? @ -No Was critical care preformed (if so, how long)? @ -No Were there social determinants of health that impacted care today? How? (H omelessness, low income, unemployed, alcoholism, drug addiction, transportation, low edu. Level, literacy, decrease access to med. care, long-term, rehab)? @ -No Was there de-escalation of care discussed even if they declined (Discuss DNR or withdrawal of care, Hospice)? DNR status @ -No What co-morbidities impacted this encounter? (DM, HTN, Smoking, COPD, CAD, Cancer, CVA, ARF, Chemo, Hep., AIDS, mental health diagnosis, sleep apnea, morbid obesity)? @ -None Was patient admitted / discharged? Hospital course, mention meds given and route, prescriptions, significant lab abnormalities, going to OR and other pertinent info. @ -Admitted. Labs obtained were WNL. Covid-[address] scan of brain was negative for any acute intracranial hemorrhage or mass effect. Ct angio head and neck showed no flow limiting stenosis in bilateral carotids. Normal [place] of [place]. Patient received IV zofran, 1L fluids, and antivert. Upon reevaluation patient was unsteady when standing and extremely dizzy with position changes she expressed she didn't feel safe enough to go home. Patient will be admitted for observation under Dr. Callahan. Patient expressed understanding. Undiagnosed new problem with uncertain prognosis? @ -No Drug Therapy requiring intensive monitoring for toxicity (Heparin, Nitro, Insulin, Cardizem)? @ -No Were any procedures done? @ -No Diagnosis/symptom? @ -Vertigo Acute, or Chronic, or Acute on Chronic? @ -Acute Uncomplicated (without systemic symptoms) or Complicated (systemic symptoms)? @ -Uncomplicated Side effects of treatment? @ -No Exacerbation, Progression, or Severe Exacerbation? @ -No Poses a threat to life or bodily function? How? (Chest pain, USA, GA, pneumonia, PE, COPD, DKA, ARF, appy, cholecystitis, CVA, Diverticulitis, Homicidal, Suicidal, threat to staff... and all critical care pts) @ -No - Lab Data Result diagrams: 06/26/23 10:23 06/26/23 10:23 Lab Results 06/26/23 06/26/23 06/26/23 Range/Units 10:23 10:23 10:23 WBC 4.1 (3.8-10.6) k/uL RBC 4.56 (3.80-5.40) m/uL Hgb 14.0 (11.4-16.0) gm/dL Hct 41.2 (34.0-46.0) % MCV 90.3 (80.0-100.0) fL MCH 30.6 (25.0-35.0) pg MCHC 33.9 (31.0-37.0) g/dL RDW 13.1 (11.5-15.5) % Plt Count 244 (150-450) k/uL MPV 6.9 Neutrophils % 68 % Lymphocytes % 22 % Monocytes % 6 % Eosinophils % 2 % Basophils % 0 % Neutrophils # 2.8 (1.3-7.7) k/uL Lymphocytes # 0.9 L (1.0-4.8) k/uL Monocytes # 0.2 (0-1.0) k/uL Eosinophils # 0.1 (0-0.7) k/uL Basophils # 0.0 (0-0.2) k/uL Sodium 140 (137-145) mmol/L Potassium 3.8 (3.5-5.1) mmol/L Chloride 108 H (98-107) mmol/L Carbon Dioxide 21 L (22-30) mmol/L Anion Gap 11 mmol/L BUN 12 (7-17) mg/dL Creatinine 0.69 (0.52-1.04) mg/dL Est GFR (CKD-EPI)AfAm >90 (>60 ml/min/1.73 sqM) Est GFR (CKD-EPI)NonAf 80 (>60 ml/min/1.73 sqM) Glucose 100 H (74-99) mg/dL Calcium 9.0 (8.4-10.2) mg/dL Magnesium 1.8 (1.6-2.3) mg/dL Total Bilirubin 0.9 (0.2-1.3) mg/dL AST 31 (14-36) U/L ALT 21 (4-34) U/L Alkaline Phosphatase 59 (38-126) U/L Total Protein 6.7 (6.3-8.2) g/dL Albumin 4.0 (3.5-5.0) g/dL Urine Color Light Yellow Urine Appearance Clear (Clear) Urine pH 6.5 (5.0-8.0) Ur Specific [place] 1.013 (1.001-1.035) Urine Protein Negative (Negative) Urine Glucose (UA) Negative (Negative) Urine Ketones 1+ H (Negative) Urine Blood Negative (Negative) Urine Nitrite Negative (Negative) Urine Bilirubin Negative (Negative) Urine Urobilinogen <2.0 (<2.0) mg/dL Ur Leukocyte Esterase Negative (Negative) Coronavirus (PCR) (Not Detectd) 06/26/23 Range/Units 10:23 WBC (3.8-10.6) k/uL RBC (3.80-5.40) m/uL Hgb (11.4-16.0) gm/dL Hct (34.0-46.0) % MCV (80.0-100.0) fL MCH (25.0-35.0) pg MCHC (31.0-37.0) g/dL RDW (11.5-15.5) % Plt Count (150-450) k/uL MPV Neutrophils % % Lymphocytes % % Monocytes % % Eosinophils % % Basophils % % Neutrophils # (1.3-7.7) k/uL Lymphocytes # (1.0-4.8) k/uL Monocytes # (0-1.0) k/uL Eosinophils # (0-0.7) k/uL Basophils # (0-0.2) k/uL Sodium (137-145) mmol/L Potassium (3.5-5.1) mmol/L Chloride (98-107) mmol/L Carbon Dioxide (22-30) mmol/L Anion Gap mmol/L BUN (7-17) mg/dL Creatinine (0.52-1.04) mg/dL Est GFR (CKD-EPI)AfAm (>60 ml/min/1.73 sqM) Est GFR (CKD-EPI)NonAf (>60 ml/min/1.73 sqM) Glucose (74-99) mg/dL Calcium (8.4-10.2) mg/dL Magnesium (1.6-2.3) mg/dL Total Bilirubin (0.2-1.3) mg/dL AST (14-36) U/L ALT (4-34) U/L Alkaline Phosphatase (38-126) U/L Total Protein (6.3-8.2) g/dL Albumin (3.5-5.0) g/dL Urine Color Urine Appearance (Clear) Urine pH (5.0-8.0) Ur Specific [place] (1.001-1.035) Urine Protein (Negative) Urine Glucose (UA) (Negative) Urine Ketones (Negative) Urine Blood (Negative) Urine Nitrite (Negative) Urine Bilirubin (Negative) Urine Urobilinogen (<2.0) mg/dL Ur Leukocyte Esterase (Negative) Coronavirus (PCR) Not Detected (Not Detectd) - EKG Data -: EKG Interpreted by Me EKG Comments: EKG performed at 10:11. Shows normal sinus rhythm with no acute T-wave abnormality changes. Ventricular rate 85, GA interval 166, QRS duration 65 QT/ QTC 350/392. - Radiology Data Radiology results: report reviewed, image reviewed Disposition Clinical Impression: Vertigo Disposition: ADMITTED IP TO THIS HOSP Condition: Stable Time of Disposition: 14:43
[2023-06-26] MEDS ORDERED: MECLIZINE 12.5 MG TAB PO STA (10:38)
[2023-06-26 10:50] LABS: Basophils % (A) 0 %; Eosinophils # (A) 0.1 k/uL (0-0.7); Eosinophils % (A) 2 %; HCT 41.2 % (34.0-46.0); Lymphocytes # (A) 0.9 k/uL (1.0-4.8); Lymphocytes % (A) 22 %; MCH 30.6 pg (25.0-35.0); MCHC 33.9 g/dL (31.0-37.0); MCV 90.3 fL (80.0-100.0); Mean Platelet Volume 6.9; Monocytes # (A) 0.2 k/uL (0-1.0); Monocytes % (A) 6 %; Neutrophils # (A) 2.8 k/uL (1.3-7.7); Neutrophils % (A) 68 %; Platelet Count 244 k/uL (150-450); RBC 4.56 m/uL (3.80-5.40); RDW 13.1 % (11.5-15.5); WBC 4.1 k/uL (3.8-10.6)
[2023-06-26 11:01] LABS: Potassium 3.8 mmol/L (3.5-5.1)
[2023-06-26 11:02] LABS: ALT 21 U/L (4-34); AST 31 U/L (14-36); African American GFR (CKD) >90 (>60 ml/min/1.73 sqM); Alkaline Phosphatase 59 U/L (38-126); Anion Gap 11 mmol/L; Blood Urea Nitrogen 12 mg/dL (7-17); Carbon Dioxide 21 mmol/L (22-30); Chloride 108 mmol/L (98-107); Glucose 100 mg/dL (74-99); Magnesium 1.8 mg/dL (1.6-2.3); Non-African American GFR(CKD) 80 (>60 ml/min/1.73 sqM); Sodium 140 mmol/L (137-145); Total Bilirubin 0.9 mg/dL (0.2-1.3); Total Protein 6.7 g/dL (6.3-8.2)
[2023-06-26 12:30] LABS: Appearance,Urine Clear (Clear); Bilirubin,Urine Negative (Negative); Blood,Urine Negative (Negative); Color,Urine Light Yellow; Glucose,Urine (UA) Negative (Negative); Ketones,Urine 1+ (Negative); Leukocyte Esterase,Urine Negative (Negative); Nitrite,Urine Negative (Negative); PH, Urine 6.5 (5.0-8.0); Protein,Urine Negative (Negative); Specific Gravity,Urine 1.013 (1.001-1.035); Urobilinogen,Urine <2.0 mg/dL (<2.0)
--- NOTE | 2023-06-26 13:12 | CT ---
EXAMINATION TYPE: CT brain wo con DATE OF EXAM: 06/26/2023 COMPARISON: None HISTORY: 82-year-old female Dizzy TECHNIQUE: Examination was done in axial plane without intravenous contrast. Coronal and sagittal r econstructions performed. CT DLP: 981.70 mGycm Automated exposure control for dose reduction was used. FINDINGS: There is no evidence of acute intracranial hemorrhage, acute ischemic changes, mass, mass-effect, or extra-axial fluid collection. There is no effacement of cerebral sulci or basal subarachnoid cister ns. There is no midline shift. Malloy-white matter distinction is preserved. Mild volume loss overlying the bilateral cerebral convexities. Mild ventricular prominence likely due to central serial atrophy. Atherosclerotic calcifications in the carotid siphons. Either prominent p erivascular space or prior lacunar infarct left basal ganglia. Paranasal sinuses and mastoid air cells well pneumatized. Orbits and globes are intact. IMPRESSION: Mild generalized cerebral atrophy. Mild burden of chronic small vessel ischemic disease. Either promi nent perivascular space versus old lacunar infarct left basal ganglia. No acute intracranial abnormal ity seen.
--- NOTE | 2023-06-26 14:19 | CT ---
EXAMINATION TYPE: CT angio head neck DATE OF EXAM: 06/26/2023 HISTORY: dizzy x2 days COMPARISON: None CT DLP: 373 mGycm. Automated Exposure Control for Dose Reduction was Utilized. TECHNIQUE: CTA scan of the neck is performed with IV Contrast, patient injected with 65 mL of Isovue 370, axial images are obtained, coronal and sagittal reformatted images are reviewed. Three-D recons tructed images are created on an independent workstation and reviewed. Source images are reviewed. FINDINGS: Carotid/Vascular Structures: There is a 3 vessel arch. Common carotid arteries bifurcate into internal and external carotid arteries without significant kenneth w limiting stenosis. Vertebral arteries are codominant. Internal carotid arteries and vertebral arteries are patent to the skull base. Cervical of [place]: Vertebral basilar system appears normal. Posterior cerebral vasculature is unrema rkable. Internal carotid arteries bifurcate normally into A1 and M1 segments. Left A1 segment is hypo plastic A2 segments are normal. The anterior communicating artery is patent. The right posterior communicating artery is absent. The left posterior communicating artery is absent. IMPRESSION: 1. Atheromatous plaquing with no flow-limiting stenosis bilateral carotid bifurcations. 2. Normal [place] of [place]. Left A1 segment is hypoplastic which is a normal variant NASCET criteria was used in interpretation of this exam?
[2023-06-26] MEDS ORDERED: NALOXONE 0.4 MG/ML 1 ML VIAL IV PRN (15:14)
[2023-06-26] MEDS ORDERED: ACETAMINOPHEN TAB 325 MG TAB PO PRN (15:14)
[2023-06-26] MEDS: SODIUM CHLORIDE 0.9% 1,000 ML IV SCH (15:39)
[2023-06-26] MEDS ORDERED: SUMAtriptan succinate 50 MG TAB PO PRN (16:09)
[2023-06-26] MEDS ORDERED: MECLIZINE 12.5 MG TAB PO PRN (17:00)
[2023-06-26] MEDS: ATORVASTATIN 10 MG TAB PO SCH (17:49)
[2023-06-26] MEDS: FOLIC ACID-VIT B COMPLEX-VIT C 1 CAP PO SCH (17:49)
[2023-06-26] MEDS: HEPARIN SODIUM,PORCINE 5,000 UNIT/ML 1 ML VIAL SQ SCH (22:26)
--- NOTE | 2023-06-27 00:29 | P.HPIM ---
History of Present Illness H&P Date: 06/26/23 Chief Complaint: Dizziness Patient is a 82-year-old female with a past medical history of hyperlipidemia, hypothyroidism, history of migraine headaches with no recent issues presents to ER with complaints of dizziness. Patient states that she started feeling dizzy yesterday a.m. when she was getting up from bed. Since then she is feeling dizzy and about to fall provided by holding onto something. Denies any fall or hitting her head. She felt nauseous and was also having mild headache.Symptoms gets worse especially while getting up from bed.Denies any blurred vision or double vision. Patient is supposed to get cataract surgery about a week ago but was postponed due to eye infection/stye. Patient was started on cephalexin and her last dose was yesterday. Otherwise denies any episodes of vomiting. No complaints of abdominal pain or diarrhea. Denies dysuria or hematuria. Patient states that she used to have migraine headaches and sometimes completely aphasic for couple days along with right upper extremity numbness. Currently denies any focal weakness of numbness or tingling sensation. On admission CT head was done which showed mild generalized cerebral atrophy. Mild burden of chronic small vessel ischemic disease. Is a prominent perivascular space versus old infarct left basal ganglia. No acute intracranial abnormality seen. CT angiogram of the head and neck showed atheromatous plaquing with no flow- limiting stenosis bilateral carotid bifurcations. Normal [place] of [place]. Left A1 segment is hypoplastic which is a normal variant. EKG showed sinus rhythm with possible left atrial enlargement. Laboratory data showed WBC 4.1 hemoglobin 14.0 and platelets 244 Sodium 140 potassium 3.8 chloride 108 bicarb is 21 BUN 12 and creatinine 0.69 and blood sugar is 100. Liver enzymes are not elevated. Urinalysis is negative for infection. COVID-19 PCR not detected. Patient was given a dose of meclizine without much improvement in symptoms. Review of Systems Constitutional: Patient denies any fever or chills . no Generalized weakness. Abdomen: Patient denied any nausea or vomiting or abd. pain Cardiovascular: Patient denies any chest pain or short of breath no palpitations. Respiratory: patient denied any cough . no sputum production. No shortness of breath Neurologic: Patient denied any numbness or tingling. Patient does have mild headache and dizziness. Musculoskeletal: Patient denies any complaints of joint swelling or deformity. Skin: Negative Psychiatric: Negative Endocrine: No heat or cold intolerance. No recent weight gain. Genitourinary: No dysuria or hematuria. All other 14 point ROS negative except the above Past Medical History Past Medical History: Eye Disorder Additional Past Medical History / Comment(s): Ear issues, migraines, History of Any Multi-Drug Resistant Organisms: None Reported Past Surgical History: Orthopedic Surgery Additional Past Surgical History / Comment(s): Right hip Past Anesthesia/Blood Transfusion Reactions: No Reported Reaction Past Psychological History: No Psychological Hx Reported Smoking Status: Never smoker Medications and Allergies Home Medications Medication Instructions Recorded Confirmed Type Ascorbic Acid [Vitamin C] 500 mg PO W/SUPPER 07/15/22 06/26/23 History Cholecalciferol [Vitamin D3 (25 25 mcg PO W/SUPPER 07/15/22 06/26/23 History Mcg = 1000 Iu)] SUMAtriptan succinate [Imitrex] 50 mg PO BID PRN 07/15/22 06/26/23 History Vitamin B Complex 1 cap PO W/SUPPER 07/15/22 06/26/23 History Levothyroxine Sodium [Synthroid] 25 mcg PO DAILY 06/26/23 06/26/23 History Rosuvastatin Calcium 5 mg PO W/SUPPER 06/26/23 06/26/23 History Allergies Allergy/AdvReac Type Severity Reaction Status Date / Time ciprofloxacin [From Cipro] Allergy Unknown Verified 06/26/23 14:16 clarithromycin Allergy Unknown Verified 06/26/23 14:16 Physical Exam Vitals: Vital Signs Temp Pulse Resp BP Pulse Ox 06/26/23 15:00 91 16 112/54 95 06/26/23 14:00 78 17 96 06/26/23 13:00 80 15 96 06/26/23 12:00 98 16 111/60 97 06/26/23 11:30 89 16 125/66 94 L 06/26/23 11:00 89 16 125/58 95 06/26/23 10:30 126/68 98 06/26/23 10:13 97 06/26/23 10:00 97.7 F 89 18 126/68 96 Intake and Output 06/26/23 06/26/23 06/26/23 06:59 14:59 22:59 Other: Weight 63.503 kg PHYSICAL EXAMINATION: Patient is lying in the bed comfortably, no acute distress, awake alert and oriented.. HEENT: Normocephalic. Neck is supple. Pupils reactive. Nostrils clear. Oral cavity is moist. Neck reveals no JVD, carotid bruits, or thyromegaly. CHEST EXAMINATION: Trachea is central. Symmetrical expansion. Lung [place] clear to auscultation and percussion. CARDIAC: Normal S1, S2 with no gallops. No murmurs ABDOMEN: Soft. Bowel sounds present. Nontender. No organomegaly. No abdominal bruits. Extremities: reveal no edema. No clubbing or cyanosis Neurologically awake, alert, oriented x3 with well-coordinated movements. No focal deficits noted Skin: No rash or skin lesions. Psychiatric: Coperative. Nonsuicidal, Musculoskeletal: No joint swelling or deformity. Normal range of motion. Results CBC & Chem 7: 06/26/23 10:23 06/26/23 10:23 Labs: Abnormal Lab Results - Last 24 Hours (Table) 06/26/23 06/26/23 06/26/23 Range/Units 10:23 10:23 10:23 Lymphocytes # 0.9 L (1.0-4.8) k/uL Chloride 108 H (98-107) mmol/L Carbon Dioxide 21 L (22-30) mmol/L Glucose 100 H (74-99) mg/dL Urine Ketones 1+ H (Negative) Thrombosis Risk Factor Assmnt - DVT/VTE Prophylaxis DVT/VTE Prophylaxis: Pharmacologic Prophylaxis ordered Assessment and Plan Assessment: Severe dizziness and gait instability. 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 Hyperlipidemia Hypothyroidism GI and DVT prophylaxis. Plan: Patient will be continued on IV hydration with normal saline. Continue with neurochecks. CT head and CT angiogram of the head and neck was done. Continue with meclizine 12.5 twice daily as needed for vertigo/dizziness. Symptomatic management for nausea. Neurology consult for evaluation. Continue to follow closely. Discussed with the patient and her daughter at bedside in detail. Time with Patient: Greater than 30
[2023-06-27] MEDS: LEVOTHYROXINE 25 MCG TAB PO SCH (05:48)
[2023-06-27] MEDS: SODIUM CHLORIDE 0.9% 1,000 ML IV SCH ×2 (05:48→19:44)
[2023-06-27 06:20] LABS: African American GFR (CKD) >90 (>60 ml/min/1.73 sqM); Anion Gap 8 mmol/L; Blood Urea Nitrogen 11 mg/dL (7-17); Calcium 8.4 mg/dL (8.4-10.2); Carbon Dioxide 20 mmol/L (22-30); Chloride 111 mmol/L (98-107); Glucose 89 mg/dL (74-99); Non-African American GFR(CKD) 80 (>60 ml/min/1.73 sqM); Potassium 4.2 mmol/L (3.5-5.1); Sodium 139 mmol/L (137-145)
[2023-06-27] MEDS ORDERED: LORazepam 2 MG/ML INJ IV STA (09:39)
[2023-06-27] MEDS: ASPIRIN 81 MG PO SCH (10:16)
[2023-06-27] MEDS: HEPARIN SODIUM,PORCINE 5,000 UNIT/ML 1 ML VIAL SQ SCH ×2 (10:16→20:45)
[2023-06-27] MEDS: FAMOTIDINE 20 MG TAB PO SCH ×2 (10:16→20:45)
--- NOTE | 2023-06-27 12:29 | MR ---
EXAMINATION TYPE: MR brain wo con DATE OF EXAM: 06/27/2023 12:15 PM CLINICAL INDICATION:Female, 82 years old with history of dizziness, ataxia; , Dizziness, ataxia. COMPARISON: 06/26/2023. TECHNIQUE: Multi planar, multi sequence imaging was performed through the brain including: T1, T2, In version recovery, Diffusion weighted imaging, and gradient echo imaging. No gadolinium was given. FINDINGS: Cerebral atrophy with proportional dilation to the ventricular system. The davis-white junctions, ventricular system, and cisterns appear unremarkable. Minimal scattered fo ci of high T2 signal intensity are seen within the periventricular white matter. Midline structures s how no abnormality. Diffusion-weighted imaging shows no evidence of restricted diffusion. The suscept ibility weighted images do not reveal any evidence for micro-hemorrhage. The bone marrow signal is within normal limits. Paranasal sinuses and mastoid air cells: No significant paranasal sinus disease. Visualized orbits: Orbital contents are intact. IMPRESSION: Motion limited exam. 1. No evidence of intracranial mass or acute/subacute infarct. 2. Minimal nonspecific white matter changes, likely secondary to small vessel ischemic disease.
[2023-06-27] MEDS: FOLIC ACID-VIT B COMPLEX-VIT C 1 CAP PO SCH (16:24)
[2023-06-27] MEDS: ATORVASTATIN 10 MG TAB PO SCH (16:24)
--- NOTE | 2023-06-27 20:25 | P.CNNES ---
History of Present Illness Consult date: 06/27/23 History of Present Illness: The pt is an 82 y/o, right-handed female who is seen in neurologic consultation on June 27, 2023, in collaboration with Amanda Sebastian, via teleneurology. History is obtained from the pt, as well as review of the chart. The pt reports that a couple days ago, she became dizzy. She describes this dizziness as a loss of balance. She felt as if she would fall over. She had to hold onto the acuna and use a walker, for support. The pt states that she feels best if she is laying in the bed. She denies a spinning sensation. The pt reports feeling slightly "lightheaded", when she is sitting up. This sensation worsens when she is standing. The pt reports associated nausea and a mild headache. She denies vomiting, chamges in speech, swalllowing, tinnitus, new hearing loss, vertigo, difficulty with hand coordination, weakness, chest pain and shortness of breath. In the emergency department, a CT scan of the brain was negative for acute hemorrhage and infarct. CT angio was negative for significant stenosis and large vessel occlusion. This morning, the pt reports that she was able to get to the bathroom with the assistance of one person, which is an improvement. She has reportedly had inconsistent results from the Meclizine which was prescribed. Review of Systems Neurological: Reports headaches (migraine headaches) Past Medical History Past Medical History: Eye Disorder Additional Past Medical History / Comment(s): Ear issues, migraines, History of Any Multi-Drug Resistant Organisms: None Reported Past Surgical History: Orthopedic Surgery Additional Past Surgical History / Comment(s): Right hip Past Anesthesia/Blood Transfusion Reactions: No Reported Reaction Past Psychological History: No Psychological Hx Reported Smoking Status: Never smoker Medications and Allergies Home Medications Medication Instructions Recorded Confirmed Type Ascorbic Acid [Vitamin C] 500 mg PO W/SUPPER 07/15/22 06/26/23 History Cholecalciferol [Vitamin D3 (25 25 mcg PO W/SUPPER 07/15/22 06/26/23 History Mcg = 1000 Iu)] SUMAtriptan succinate [Imitrex] 50 mg PO BID PRN 07/15/22 06/26/23 History Vitamin B Complex 1 cap PO W/SUPPER 07/15/22 06/26/23 History Levothyroxine Sodium [Synthroid] 25 mcg PO DAILY 06/26/23 06/26/23 History Rosuvastatin Calcium 5 mg PO W/SUPPER 06/26/23 06/26/23 History Allergies Allergy/AdvReac Type Severity Reaction Status Date / Time ciprofloxacin [From Cipro] Allergy Unknown Verified 06/26/23 14:16 clarithromycin Allergy Unknown Verified 06/26/23 14:16 Physical Examination - Vital Signs Vital Signs: Vital Signs Temp Pulse Pulse Pulse Pulse Resp BP 06/27/23 14:50 98.3 F 71 18 06/27/23 09:55 94 101 H 90 126/72 06/27/23 07:05 97.6 F 71 18 06/27/23 04:12 97.7 F 76 16 06/26/23 20:58 98.1 F 76 16 BP BP BP Pulse Ox 06/27/23 14:50 98/64 98 06/27/23 09:55 107/66 113/65 94 L 06/27/23 07:05 85/51 96 06/27/23 04:12 129/77 96 06/26/23 20:58 111/71 94 L Intake and Output 06/27/23 06/27/23 06/27/23 06:59 14:59 22:59 Intake Total 418 118 Balance 418 118 Intake: Oral 418 118 Other: # Voids 1 3 General: The pt is well nourished and in no acute distress HEENT: Head is atraumatic, normocephalic. There is no scleral icterus. Fundus is not visualized. Mucous membranes moist. Neck: Supple, without carotid bruits Heart: Regular rate and rhythm Lungs: No respiratory distress, cough or wheeze Extremities: Without edema Neurological examination Mental Status: The pt is awake, alert and oriented x3. Speech is clear. There is no dysarthria or aphasia. Judgement and insight are intact Cranial Nerves: Pupils are equal at 3 mm and reactive. Visual rowland are diminished secondary to catarracts. Extraocular movments are intact. Facial sensation is intact. There is no facial asymmetry. Hearing is grossly intact. Uvula and palate are midline. Shoulder shrug is symmetric. Tongue protrudes midline. Motor: Strength is 5/5 in the bilateral upper and lower extremities Sensation: Intact to light touch through out. There is no extinction with double simultaneous stimulation. Coordination: Finger to nose, rapid alternating movements and heel to orosco testing are intact. Deep tendon reflexes: 2+/4+ throughout. Plantar responses are flexor Gait: Not assessed, but observed. The pt was observed walking with the assistance of a walker. Her gait was not wide based. She slightly unsteady Results - Laboratory Findings CBC and BMP: 06/26/23 10:23 11 05:33 Abnormal Lab Findings: Abnormal Labs 06/26/23 06/26/23 06/26/23 10:23 10:23 10:23 Lymphocytes # 0.9 L Chloride 108 H Carbon Dioxide 21 L Glucose 100 H Urine Ketones 1+ H 06/27/23 05:33 Lymphocytes # Chloride 111 H Carbon Dioxide 20 L Glucose Urine Ketones Assessment and Plan Assessment: 1. Dizziness/loss of balance and ataxia The pt has a normal neurological examination at this time. Based on the sudden onset as well as the worsening, at home, prior to admission, Differential diagnosis of posterior circulation stroke must be considered. Orthostatic hypotension must be ruled out 2. History of migraine headaches Plan: 1. MRI brain 2. Orthostatic vitals should be checked. The pt was found to be hypotensive this am 3. Review medications as a possible cause 4. Review labs Thank you for allowing us to participate in the care of this pt. Time with Patient: Greater than 30 (50 minutes spent caring for this pt today, including obtaining a history, examining pt, reviewing imaging, chart documentation, labs and creating this note)
[2023-06-27 21:50] VITALS: RESP 16
[2023-06-28] MEDS: LEVOTHYROXINE 25 MCG TAB PO SCH (06:21)
[2023-06-28] MEDS: HEPARIN SODIUM,PORCINE 5,000 UNIT/ML 1 ML VIAL SQ SCH (09:35)
[2023-06-28] MEDS: SODIUM CHLORIDE 0.9% 1,000 ML IV SCH (09:35)
[2023-06-28] MEDS: FAMOTIDINE 20 MG TAB PO SCH (09:35)
[2023-06-28] MEDS: ASPIRIN 81 MG PO SCH (09:36)
[2023-06-28 16:05] VITALS: BP 95/56; PULSE 97; TEMP 98.5
--- NOTE | 2023-06-28 16:52 | P.PN ---
Subjective Progress Note Date: 06/28/23 The pt is seen in neurologic follow up on 2022, in collaboration with Amanda Romero, via teleneurology. The pt reports she is feeling much better today and is anxious to go home. She reports walking unassisted, to the bathroom. She did take a walker with her. MRI of the brain has been completed and images have been personally reviewed. The results were discussed with the pt. Objective - Vital Signs Vital signs: Vital Signs Temp 97.9 F 06/28/23 03:24 Pulse 94 06/28/23 03:24 Resp 16 06/28/23 03:24 BP 123/78 06/28/23 03:24 Pulse Ox 96 06/28/23 03:24 FiO2 Intake & Output 06/27/23 06/28/23 06/28/23 19:59 06:59 18:59 Intake Total Balance Intake: Oral Other: # Voids - Exam General: The pt is fully dressed and standing at the side of the bed. She is in no distress. Neurological exam Mental status: The pt is awake, alert and oriented x3. Speech is clear. Coordination: The pt is able to accurately perform finger to nose testing, while standing, with eyes open. - Labs CBC & Chem 7: 06/26/23 10:23 06/27/23 05:33 Assessment and Plan Assessment: 1. Dizziness/loss of balance and ataxia Posterior circulation stroke has been ruled out. While the pt's blood pressure is low at times, she does not meet criteria for orthostatic hypotension 2. History of migraine headaches Plan: 1. MRI brain-negative for stroke 2. The pt is neurologically stable for discharge 3. She has been advised to follow up with her primary care physician in 1-2 wks Thank you for allowing us to participate in the care of this pt. Time with Patient: Less than 30
== END 2023-06-28 15:07 | disposition home or self-care (01) ==
LOC: EC 09:54 → 6NMEDSUR 14:26
PROVIDERS: ADMIT Internal Medicine; ATTEND Internal Medicine
DX: R42 Dizziness and giddiness (principal); R26.89 Other abnormalities of gait and mobility; E78.5 Hyperlipidemia, unspecified; E03.9 Hypothyroidism, unspecified; G43.909 Migraine, unspecified, not intractable, without status migrainosus; Z20.822 Contact with and (suspected) exposure to COVID-19; Z79.890 Hormone replacement therapy; Z79.899 Other long term (current) drug therapy; Z88.1 Allergy status to other antibiotic agents
CPT/HCPCS: 96361 ×2; 96372 ×3; 96375; 96374; 99285; 36415; 93005; 80053; 80048; 83735; 85025; 81003; 87635; 70496; 70450; 70498; 70551; G0378 ×3; J2060; J1644 ×3; J2405; Q9967

== ENCOUNTER → 2024-06-10 | Outpatient (CLI) | payer MEDICARE ==
--- NOTE | 2024-06-10 12:46 | US ---
EXAMINATION TYPE: US abdomen complete DATE OF EXAM: 06/10/2024 COMPARISON: NONE CLINICAL INDICATION: Female, 83 years old with history of R42 SYNCOPE R10.84 AB PAIN; elderly female with on and off abd pain TECHNIQUE: Grayscale and color Doppler imaging of the abdomen was performed. FINDINGS: EXAM MEASUREMENTS: Liver Length: 14.1 cm Gallbladder Wall: 0.2 cm CBD: 0.3 cm Spleen: 8.1 cm Right Kidney: 8.1 x 3.2 x 4.2 cm Left Kidney: 7.4 x 3.8 x 4.2 cm Pancreas: wnl Liver: wnl Gallbladder: wnl Evidence for sonographic Krueger's sign: no CBD: wnl Spleen: wnl Right Kidney: wnl Left Kidney: wnl Upper IVC: wnl Abd Aorta: calcifications seen The liver is homogenous. The intrahepatic portion of the IVC and proximal abdominal aorta are within normal limits. Atherosclerotic calcification of the abdominal aorta. There is no evidence of choleli thiasis. Common bile duct is unremarkable. The visualized portions of the pancreas are homogenous. The spleen is unremarkable. Kidneys are symmetric and free of hydronephrosis. No renal lesions are seen. IMPRESSION: No ultrasound evidence for an acute abdominal process. [facility], , 06/10/2024 12:44 PM
--- NOTE | 2024-06-10 16:07 | CA ---
Transthoracic Echo Report Name: Pamela Yepez Age: 83 Gender: F : 1940 Exam Date: 06/10/2024 10:22 Exam Location: [facility] Ht (in): 66 Wt (lb): 117 Ordering Physician: Juan R Crandall MD Attending/Referring Phys: Store Stocker Mi Bacon RDCS Procedure CPT: Indications: R42 Dizziness Cardiac Hx: Technical Quality: Fair Contrast 1: Total Dose (mL): Contrast 2: Total Dose (mL): MEASUREMENTS (Male / Female) Normal Values 2D ECHO LV Diastolic Diameter PLAX 3.3 cm 4.2 - 5.9 / 3.9 - 5.3 cm LV Systolic Diameter PLAX 2.4 cm IVS Diastolic Thickness 0.9 cm 0.6 - 1.0 / 0.6 - 0.9 cm LVPW Diastolic Thickness 0.8 cm 0.6 - 1.0 / 0.6 - 0.9 cm LV Relative Wall Thickness 0.5 RV Internal Dim ED PLAX 2.8 cm LVOT Diameter 1.6 cm LA Systolic Diameter LX 3.2 cm 3.0 - 4.0 / 2.7 - 3.8 cm LV Diastolic Volume MOD 4C 29.8 cm??? LV Systolic Volume MOD 4C 7.3 cm??? LV Ejection Fraction MOD 4C 75.6 % LV Cardiac Index MOD 4C 1267.6 cm???/min???m??? LV Diastolic Length 4C 5.8 cm LV Systolic Length 4C 4.5 cm M-MODE Aortic Root Diameter MM 2.4 cm LA Systolic Diameter MM 3.0 cm LA Ao Ratio MM 1.3 AV Cusp Separation MM 1.3 cm DOPPLER AV Peak Velocity 140.9 cm/s AV Peak Gradient 7.9 mmHg AV Mean Velocity 95.8 cm/s AV Mean Gradient 4.2 mmHg AV Velocity Time Integral 28.8 cm AI Peak Velocity 310.9 cm/s AI Peak Gradient 38.7 mmHg AI Pressure Half Time 1030.8 ms LVOT Peak Velocity 79.5 cm/s LVOT Peak Gradient 2.5 mmHg LVOT Velocity Time Integral 17.8 cm LVOT Stroke Volume 36.4 cm??? LVOT Stroke Volume Index 22.9 ml/m??? LVOT Cardiac Index 2048.6 cm???/min???m??? AV Area Cont Eq vti 1.3 cm??? AV Area Cont Eq pk 1.2 cm??? MV Peak Velocity 141.3 cm/s MV Peak Gradient 8.0 mmHg MV Mean Velocity 70.8 cm/s MV Mean Gradient 2.4 mmHg MV Velocity Time Integral 28.0 cm MV Area PHT 2.9 cm??? Mitral E Point Velocity 75.8 cm/s Mitral A Point Velocity 124.6 cm/s Mitral E to A Ratio 0.6 MV Deceleration Time 259.9 ms TR Peak Velocity 289.0 cm/s TR Peak Gradient 33.4 mmHg Right Ventricular Systolic Press 36.9 mmHg FINDINGS Left Ventricle Left ventricular ejection fraction is estimated at 55-60 %. Normal left ventricular systolic function with no obvious regional wall motion abnormalities. Left ventricular cavity size normal. Left ventricular wall thickness normal. Right Ventricle Severe right ventricular dilatation. Mild pulmonary hypertension. Right Atrium Severe right atrial dilatation. Left Atrium Moderate left atrial dilatation. Mitral Valve Mitral valve thickened. Moderate mitral regurgitation. No mitral stenosis. Mitral annular calcification. Aortic Valve Trileaflet aortic valve. Diffuse thickening (sclerosis) of the aortic valve cusps without reduced excursion. Focal thickening of the aortic valve cusps. Mild aortic regurgitation. Tricuspid Valve Myxomatous (redundant) tricuspid valve. Moderate to severe tricuspid regurgitation. No tricuspid stenosis. Pulmonic Valve Structurally normal pulmonic valve. Trace pulmonic regurgitation. No pulmonic stenosis. Pericardium Minimal pericardial effusion (normal variant). Aorta Normal size aortic root and proximal ascending aorta. CONCLUSIONS Left ventricular ejection fraction 55-60% RVSP 37 Moderate mitral regurgitation Mild aortic regurgitation Moderate to severe tricuspid regurgitation Previewed by: Dr. Sohan Santiago DO (Electronically Signed) Final Date: 10 June 2024 16:06
== END ==
LOC: RADUSWWP 09:16
PROVIDERS: ATTEND Internal Medicine
CPT/HCPCS: 76700; 93306